=== PATIENT | female | born 1970 | race Caucasian/White ===

== ENCOUNTER 2018-03-31 11:52 | Emergency (ER) | payer BC, OTHER ==
[2018-03-31 12:47] LABS: ABS Basophils 0 10^3/ul (0-0.2); ABS Eosinophils 0 10^3/ul (0-0.6); ABS Lymphocytes 1.4 10^3/ul (1.0-4.8); ABS Monocytes 0.5 10^3/ul (0-0.8); ABS Neutrophils 4.3 10^3/ul (1.5-7.7); ABS Nucleated RBC 0 10^3/ul; Eosinophil % 0.1 % (0-6); Hematocrit 43 % (35-47); Hemoglobin 14.7 g/dl (12.0-16.0); Mean Corpuscular HGB Conc 34 g/dl (31-36); Mean Corpuscular Hemoglobin 31 pg (27-31); Mean Corpuscular Volume 90 fL (80-97); Mean Platelet Volume 7.9 um3 (7.4-10.4); Nucleated Red Blood Cells % 0.1; Platelet Count 226 10^3/ul (150-450); Red Blood Count 4.81 10^6/ul (4.00-5.40); Red Cell Distribution Width 13 % (10.5-15); White Blood Count 6.2 10^3/ul (3.5-10.8)
--- OUTSIDE RECORDS SUMMARY | 2018-03-31 13:17 | XMS REPORT ---
:1970 External Reference #:[id number] Author Organization [facility] Address [address] [place] [address] Phone [phone] Care Team Providers Name Role Phone Leti Chapman Care Team Information Field Sales Associate Unavailable Leti Chapman Primary Care Physician Unavailable Payers Type Date Identification Numbers Payment Provider Subscriber Commercial Effective: Policy Number: [employer] Joseph Calle 2017 [id number] PayID: [id number] [place] [address] [place] [address] Problems Date Description Provider Status Onset: 10/03/2011 Low blood pressure Sonja Edmondson M.D. Active Onset: 10/03/2011 Insomnia Sonja Edmondson M.D. Active Onset: 10/03/2011 Cyst of thyroid Sonja Edmondson M.D. Active Onset: 10/03/2011 Hypothyroidism Sonja Edmondson M.D. Active Family History Date Family Member(s) Problem(s) Comments Father Heart Disease Father 78 Father Atrial Fibrillation Father Hypertension Father Hypercholesterolemia Father Alzheimer's Disease Mother Autoimmune Dz chornic pain, depression Mother 73 Children None Siblings 2 biological brothers, 1 half bro, 1 half sis Paternal Grandfather due to COPD () Paternal Grandmother due to Aneurysm () Maternal Grandfather due to Heart Disease () - diabetes, Alzheimers. 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 Daily Caffeine Consumes on average 4 cups of coffee per day Exercise Type/Frequency Exercises sporadically Allergies, Adverse Reactions, Alerts Date Description Reaction Status Severity Comments 10/03/2011 Sulfa active 10/03/2011 Gluten anaphylaxis. active Medications Medication Date Status Form Strength Qnty SIG Indications Ordering Provider Diazepam 03/30/ Active Tablets 2mg 6tabs 1-2 by I71.9 Leti Canas 2017 mouth one Adela, hour prior M.D. to procedure Synthroid 07/12/ Active Tablets 50mcg 90tab take 1 Leti Canas 2015 s tablet by Adela, mouth M.D. daily Nystatin 10/03/ Hx Suspension [id number] 60ml 4-5gtts Cristhian FDg 2018 - /ML both ear Shallish, 03/29/ canals qid M.D. 2018 Ciprodex 08/24/ Hx Suspension 0.3-0.1% 7.500 4 drops H62.43 Leti Floresita 2016 - ml both ears Adela, 09/28/ twice M.D. 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 461.0 Tobramycin 01/31/2012 - Hx Solution 0.3% 1Bottle 1-2 gtts into 372.00 Jeanette Sulfate 06/26/2012 both eyes q 4 Anthony, hrs x 5 days Afnp-C Klonopin 10/03/2011 - Hx Tablets 1mg 1/4 po qhs Family 06/18/2013 [facility] Biaxin - Hx Tablets 500mg 20tabs take one Unknown 02/19/2014 tablet po bid x 10 days finish all medication Prednisone - Hx Tablets 20mg 3 tabs x 3 Unknown 02/19/2014 days, 2 tabs x 2 days, 1 tab x 2 days Proventil HFA - Hx Aerosol 108(90B 2 puffs q 4 Unknown 02/19/2014 ase) hrs prn mcg/Act Immunizations CPT Code Status Date Vaccine Lot # [id number] Given 12/25/2015 Tdap Tetanus, W Pertussis [id number] Vital Signs Date Vital Result Comment 03/30/2018 BP Systolic 112 mmHg BP Diastolic 58 mmHg Heart Rate 68 /min Body Temperature 97.9 F Height 68 inches 5'8" Weight 184.00 lb BMI (Body Mass Index) 28.0 kg/m2 10/03/2017 BP Systolic 118 mmHg BP Diastolic 68 mmHg Heart Rate 64 /min Body Temperature 97.9 F Respiratory Rate 16 /min Height 68 inches 5'8" Weight 190.12 lb BMI (Body Mass Index) 28.9 kg/m2 08/24/2017 BP Systolic 108 mmHg BP Diastolic 64 mmHg Heart Rate 64 /min Body Temperature 97.9 F Respiratory Rate 16 /min Height 68 inches 5'8" Weight 189.25 lb BMI (Body Mass Index) 28.8 kg/m2 01/02/2017 BP Systolic 110 mmHg BP Diastolic 72 mmHg Heart Rate 68 /min Body Temperature 98.4 F Respiratory Rate 16 /min Height 68 inches 5'8" Weight 183.00 lb BMI (Body Mass Index) 27.8 kg/m2 12/25/2015 BP Systolic 104 mmHg BP Diastolic 60 mmHg Heart Rate 72 /min Body Temperature 98.6 F Respiratory Rate 16 /min Height 68 inches 5'8" Weight 172.38 lb BMI (Body Mass Index) 26.2 kg/m2 12/24/2014 BP Systolic 110 mmHg BP Diastolic 70 mmHg Heart Rate 76 /min Body Temperature 99.1 F Respiratory Rate 16 /min Height 68 inches 5'8" measured Weight 167.00 lb BMI (Body Mass Index) 25.4 kg/m2 02/19/2014 BP Systolic 94 mmHg BP Diastolic 60 mmHg Heart Rate 66 /min Respiratory Rate 16 /min Height 68 inches 5'8" measured Weight 165.00 lb BMI (Body Mass Index) 25.1 kg/m2 10/30/2013 BP Systolic 120 mmHg BP Diastolic 70 mmHg Heart Rate 68 /min Body Temperature 98.6 F Respiratory Rate 16 /min Height 68 inches 5'8" measured Weight 165.00 lb BMI (Body Mass Index) 25.1 kg/m2 06/18/2013 BP Systolic 112 mmHg BP Diastolic 72 mmHg Heart Rate 60 /min Body Temperature 98.4 F Respiratory Rate 16 /min Height 68 inches 5'8" measured Weight 165.00 lb BMI (Body Mass Index) 25.1 kg/m2 06/26/2012 BP Systolic 90 mmHg BP Diastolic 50 mmHg Heart Rate 56 /min Body Temperature 98.7 F Respiratory Rate 18 /min Height 68 inches 5'8" measured Weight 164.00 lb BMI (Body Mass Index) 24.9 kg/m2 01/31/2012 BP Systolic 100 mmHg BP Diastolic 68 mmHg Heart Rate 80 /min Body Temperature 98.6 F Height 68 inches 5'8" measured Weight 160.00 lb BMI (Body Mass Index) 24.3 kg/m2 10/03/2011 BP Systolic 114 mmHg BP Diastolic 72 mmHg Heart Rate 72 /min Body Temperature 99.3 F Height 68 inches 5'8" measured Weight 154.00 lb BMI (Body Mass Index) 23.4 kg/m2 Right Visual Acuity Distance 20/20 corrected Left Visual Acuity Distance 20/20 corrected Results Test Date Test Result H/L Range Note Comprehensive Metabolic Prof 01/02/2017 Sodium 137 mEq/L 134-149 Potassium 4.3 mEq/L 3.6-5.5 Chloride 99 mEq/L 94-112 Carbon Dioxide 31 mEq/L 21-32 Glucose 85 mg/dL 70-105 BUN 12 mg/dL 6-26 Creatinine 0.7 mg/dL 0.6-1.4 BUN/Creat Ratio 17.1 CALC 8.0-36.0 Calcium 9.1 mg/dL 8.6-10.2 Total Protein 6.7 g/dL 6.4-8.3 Albumin 4.3 g/dL 3.8-5.5 Globulin 2.4 g/dL 2.0-4.8 A/G Ratio 1.8 CALC 0.6-2.3 Alk. Phosphatase 41 U/L 30-110 Alt (SGPT) 19 U/L 7-35 Ast (Sgot) 20 U/L 5-34 Total Bilirubin 0.3 mg/dL 0.2-1.3 GFR Non- >60 ml/min/1.73m^ >=60 GFR >60 ml/min/1.73m^ >=60 Complete Blood Count 01/02/2017 WBC 6.8 x10^3/UL 3.6-9.6 RBC 4.74 x10^6/UL 3.90-5.70 HGB 14.4 g/dL 12.1-17.2 HCT 43 % 36-50 MCV 91.0 fL 82.2-97.4 MCH 30.4 pg 27.6-33.3 MCHC 33.3 g/dL 33.0-35.5 RDW 13.8 % High 11.6-13.7 PLT 241 x10^3/UL 150-400 MPV 7.1 fL Low 5.5-11.0 Gran # 4.6 x10^3/UL 1.5-7.2 Lymph# 1.7 x10^3/UL 0.7-4.9 [place]ingo# 0.5 x10^3/UL 0.1-0.9 Gran % 66.5 % 42.2-75.2 Lymph % 25.7 % 20.5-51.1 [place]% 7.8 % 1.7-9.3 Laboratory test finding 01/02/2017 Free T4 1.14 ng/dL 0.75-1.54 TSH 1.28 mIU/L 0.50-6.00 Laboratory test finding 01/02/2016 Glucose, Serum 94 mg/dL 70-105 Lipid Profile 01/02/2016 Cholesterol 225 mg/dL High 120-200 Triglycerides 31 mg/dL 30-200 HDL Cholesterol 81 mg/dL 30-85 LDL (Calculated) 138 CALC High 0-129 VLDL Cholesterol 6 mg/dL 0-50 HDL Risk Factor 2.8 CALC 0.0-4.4 Laboratory test finding 01/02/2016 TSH 1.11 mIU/L 0.50-6.00 1 Free T4 1.15 ng/dL 0.75-1.54 Laboratory test finding 12/24/2014 TSH 1.04 mIU/L 0.50-6.00 Free T4 1.20 ng/dL 0.75-1.54 Glucose, Serum 93 mg/dL 70-105 Vitamin B-12 261 pg/mL 230-1050 Vitamin D25 13 Low 30-100 CBC Electronic (Fma) 12/24/2014 WBC 6.9 3.6-9.6 RBC 4.65 3.90-5.70 Hemoglobin (Fma/CMC/CTX) 14.5 g/dL 12.1 - 17.2 Hematocrit (Fma/CMC/CTX) 42.8 % 36.1 - 50.3 Platelets 253 10^3/ul 150-400 Lymph% 31.8 % 17.0-48.0 Mixed% 6.1 Neutrophils % 62.1 Mean Corpuscular Vol 92 82.2-97.4 Mean Corpuscular Hemoglobin 31.1 27.6-33.3 Mean Corpuscular Hemo Concen 33.8 32.0-36.0 RDW 13.5 11.6-13.7 Mean Platelet Volume 7.2 5.5-11.0 Laboratory test finding 02/19/2014 Free T4 1.11 ng/dL 0.75-1.54 TSH 0.99 mIU/L 0.50-6.00 CBC Electronic ([facility]) 06/18/2013 WBC 6.3 3.6-9.6 RBC 4.69 3.90-5.70 Hemoglobin (Fma/CMC/CTX) 14.4 g/dL 12.1 - 17.2 Hematocrit (Fma/CMC/CTX) 43.7 % 36.1 - 50.3 Platelets 285 10^3/ul 150-400 Lymph% 28.8 20.5-51.1 Mixed% 6.1 Neutrophils % 65.1 Mean Corpuscular Vol 93 82.2-97.4 Mean Corpuscular Hemoglobin 30.8 27.6-33.3 Mean Corpuscular Hemo Concen 33.0 32.0-36.0 RDW 12.4 11.6-13.7 Mean Platelet Volume 6.7 6.5-11.0 Laboratory test finding 06/18/2013 Sed Rate (Fma/CMC/Centrex) 4mm Ua - Micro (a) 06/18/2013 Appearance clear Color yellow Glucose, Urine (Fma/CMC/CTX) - Bilirubin - Ketones - SP Grav 1.020 Blood - PH 7.5 Protein - Urobil 1.0 Nitrite - Leukocytes (Fma/CMC/Centrex) small Hyaline - /Lpf Granular - /Lpf WBC (Fma,Centrex) 15-20 RBC 1-2 Mucus (Fma/CBC/Centrex) - /Lpf Epith occ /Lpf Bacteria +1 /Hpf Amorphous (Fma/CMC/Centrex) - /Lpf Crystals, Fluid (Fma/CMC/CTX) - Z#Comments - Laboratory test finding 06/18/2013 Urine Culture No significant g <SEE 2 NOTE> Comprehensive Metabolic 06/18/2013 Albumin 4.6 g/dL 3.8-5.5 Prof Alk. Phos. 58 U/L 30-110 Alt (SGPT) 17 U/L 7-35 Ast (Sgot) 25 U/L 5-34 BUN 15 mg/dL 6-26 Calcium 8.8 mg/dL 8.6-10.2 Chloride 102 mEq/L 94-112 Creatinine 1.0 mg/dL 0.6-1.4 Carbon Dioxide 22 mEq/L 21-32 Glucose 91 mg/dL 70-105 Sodium 137 mEq/L 134-149 Total Bilirubin 0.4 mg/dL 0.2-1.3 Total Protein 6.6 g/dL 6.3-8.1 Potassium 4.8 mEq/L 3.6-5.5 Globulin 2.0 g/dL 2.0-4.8 A/G Ratio 2.3 Calc 0.6-2.3 BUN/Creat Ratio 15.0 Calc 8.0-36.0 Basic Metabolic Panel 10/04/2012 Sodium 139 mmol/L 133-145 Potassium 4.4 mmol/L 3.5-5.0 Chloride 107 mmol/L 101-111 Co2 Carbon Dioxide 28.0 mmol/L 22-32 Anion Gap 4.0 mmol/L 2-11 Glucose 85 mg/dL 70-100 Blood Urea Nitrogen 13 mg/dL 6-24 Creatinine 0.70 mg/dL 0.50-1.40 BUN/Creatinine Ratio 18.6 8-20 Calcium 9.0 mg/dL 8.1-9.9 Egfr Non- 90.9 >60 Egfr 116.9 >60 3 Laboratory test finding 10/04/2012 TSH (Thyroid Stimulating 0.59 miu/mL 0.34-5.60 Horm) Cortisol 9.5 g/dL 4 Laboratory test finding 10/04/2012 Acth 14 pg/mL 5 Aldosterone 5.8 ng/dL <=21 6 Renin 1.1 ng/mL/h 7 Laboratory test finding 10/03/2011 TSH 1.61 mIU/L 0.50-6.00 Ua - Non Micro (Fma) 10/03/2011 Appearance clear Color yellow' Glucose - Bilirubin - Ketones trace SP Grav 1.020 Blood - PH 5.5 Protein - Urobil 0.2 Nitrite - Leukocytes (Fma/CMC/Centrex) - 1 FASTING 2 No significant growth. 3 Because ethnic data is not always readily available, this report includes an eGFR for both -Americans and non- Americans. The National Kidney Disease Education Program (NKDEP) does not endorse the use of the MDRD equation for patients that are not between the ages of 18 and 70, are , have extremes of body size, muscle mass, or nutritional status, or are non- or non-. According to the National Kidney Foundation, irrespective of diagnosis, the stage of the disease is based on the level of kidney function: Stage Description GFR(mL/min/1.73 m(2)) 1 Kidney damage with normal or decreased GFR 90 2 Kidney damage with mild decrease in GFR 60-89 3 Moderate decrease in GFR 30-59 4 Severe decrease in GFR 15-29 5 Kidney failure <15 (or dialysis) 4 AM Cortisol 8.7-22.4 PM Cortisol Less than 10 5 -- REFERENCE VALUE -- 10-60 (a.m. collection) Test Performed by: [place] [address] Farm Advisor: Sedrick Lee III, M.D. 6 Reference range based on upright A.M. collection from subjects on ad heather sodium uptake. Test Performed by: [place] [address] Farm Advisor: Sedrick Lee III, M.D. 7 -- REFERENCE VALUE -- (Peripheral vein specimen) Na-deplete, upright: Mean: 5.9 Range: 2.9-10.8 Na-replete, upright: Mean: 1.0 Range: <=0.6-3.0 Test Performed by: [place] [address] Farm Advisor: Sedrick Lee III, M.D. Procedures Date CPT Code Description Status Comment 12/26/2016 Mammogram Completed pt states utd pp 06/29/2012 31367 Holter Monitor Completed 06/26/2012 39757 Electrocardiogram Complete Completed 10/03/2011 39787 Vision Test- screening test of visual Completed acuity, quantitative, bila Encounters Type Date Location Provider CPT E/M Dx Office Visit 10/03/2017 3:20p Main Office Cristhian Baez M.D. 44465 H62.43 Office Visit 08/24/2017 10:30a [facility] Leti Chapman, 50970 H62.43 Wilfredo H61.21 Office Visit 01/02/2017 3:30p [facility] Marissa Montez-C 48557 Z83.3 E03.9 R06.83 R21 Office Visit 12/25/2015 1:00p [place] [address] E03.9 M25.512 Z23 Office Visit 12/24/2014 4:00p [place] [address] 780.79 244.9 380.4 268.9 Office Visit 02/19/2014 3:30p [place] [address] 244.9 Office Visit 10/30/2013 9:15a Main Office BelkysROVERTO Amin 10397 466.0 461.0 Office Visit 06/18/2013 3:30p [facility] Marissa Montez-C 76384 789.02 788.41 Office Visit 06/29/2012 10:00a [facility] Leti Chapman M.D. 27798 458.1 Office Visit 06/26/2012 3:30p Main Office Leti Chapman M.D. 25991 458.1 Office Visit 01/31/2012 4:00p Main Office Marissa Rojo-C 77734 372.00 Office Visit 10/03/2011 6:00p Main Office Sonja Edmondson, 75577 244.9 MDgDDg 246.2 780.52 458.9 V72.0 Plan of Care 03/30/2018 - Leti Chapman M.D.Z00.01 Encounter for general adult medical exam w abnormal findingsNew Labs:CBC Electronic (Fma)CCC-Comp+Lipid (Fma)T4, TSH & [place]1Qxjimxqq:You are in excellent general health. I recommend regular physical exams with attention to good nutrition and exercise, eye exams every other year, and dental exams twice yearly. ~B_~U_Goals:~u_~b_2 fresh fruits daily3 helpings of fresh green and multicolored vegetablesEat from the whole color spectrum. 40-60 Oz water daily~B_~U_MOVE YOUR BODY.~u_~b_ Bodies were made to be moved. exercise 30 minutes at least 4-5 times tqxdweX45.31 Encntr screen mammogram for malignant neoplasm of breastNew Xrays:Mammography Screening, Bilateral; 2-View Each JlfxekJ50.9 Hypothyroidism, unspecifiedComments:Stable. Continue present meds.I71.9 Aortic aneurysm of unspecified site, without ruptureNew Medication:Diazepam 2 mgNew Xrays:CT Abdomen & Pelvis W/ContrastComments:needs valium for claustrophobia.E55.9 Vitamin D deficiency, unspecifiedNew Labs:Vitamin D, 25Hydroxy(Fma/LCR53.83 Other fatigueNew Labs:Vitamin B12 And Folate SerumFollow up:4 weeksAllComments:~ B_~U_Medication Management~b_~u_ Patient Understands medications she's taking? Yes No Are there Barriers to Adherence? Yes No Has the patient been asked about herbal supplements and therapies, and OTC meds? Yes No
[2018-03-31] MEDS ORDERED: Iohexol 300* (CONTRAST) 10 ML SDV IV ONE (13:18)
--- NOTE | 2018-03-31 13:23 | RAD ---
Indication: Chest discomfort. 2 views of the chest including dual energy PA views demonstrate no mediastinal shift. Heart is of normal size and configuration. Lung early are clear. IMPRESSION: No active cardiopulmonary disease is noted.
--- NOTE | 2018-03-31 14:00 | RAD ---
Indication: Abdominal cramping evaluate for abdominal aortic aneurysm. Contrast: Administered 100.1 ml of OMNIPAQUE 300 mg/ml CT of the abdomen and pelvis was performed without oral or IV contrast administration. Heart is of normal size without evidence of pericardial effusion. The liver is normal in size. No focal lesions or intrahepatic ductal dilatation is noted. The gallbladder demonstrates no calcified gallstones, pericholecystic fluid or wall thickening. The common duct is not dilated. Pancreas demonstrates no mass or pancreatic duct dilatation. The spleen is normal in size. No adrenal lesions are noted. The kidneys demonstrate symmetric nephrograms without evidence of hydronephrosis or focal masses. There is a nonobstructing calculi in the left kidney measuring up to 5 mm. Aorta and inferior vena cava are unremarkable. There is no evidence of abdominal aortic aneurysm. No retroperitoneal lymphadenopathy is noted. No dilated loops of bowel are noted. CT of the pelvis demonstrates no retroperitoneal or pelvic lymphadenopathy. The IUD is in place. The uterus and ovaries are unremarkable. The urinary bladder is otherwise distended but otherwise unremarkable. The visualized bony structures are unremarkable. IMPRESSION: No evidence of abdominal aortic aneurysm. Nonobstructing left renal calculus. No other masses or fluid collections are identified.
[2018-03-31 14:31] VITALS: BP 102/86
--- NOTE | 2018-03-31 16:22 | ED ---
Abdominal Pain/Female - HPI Summary HPI Summary: Patient is a 47-year-old female presenting to the ED with 1 month history of bilateral cramping to the lower quadrants which radiates to the bilateral lower back. She describes them as "period cramps," but has not had her period in several years due to perimenopausal. She recently had her follow-up with her PCP who found a "possible aortic aneurysm." She is tearful on arrival and states she is unable to wait the [address] scan and is concerned over her worsening symptoms. Denies any fevers, sweats, chills. Denies any nausea, vomiting, diarrhea, constipation. Last BM this morning. Last menstrual cycle several months to year ago. Denies any vaginal bleeding. Endorses a feeling of "fullness" in the abdomen but denies gaining any weight. Denies any known cardiac history, however father from [facility]. Concerned over aortic aneurysm as grandmother of an early age due to this. - History of Current Complaint Chief Complaint: EDZuleika Stated Complaint: CRAMPS ABD AND BACK Time Seen by Provider: 03/31/18 12:09 Hx Obtained From: Patient ?: No Onset/Duration: Gradual Onset Timing: Constant Severity Initially: Moderate Severity Currently: Moderate Pain Intensity: 0 Pain Scale Used: 0-10 Numeric Location: Discrete At: LUQ, Discrete At: LLQ Radiates: No Character: Cramping Aggravating Factor(s): Nothing Alleviating Factor(s): Nothing Associated Signs and Symptoms: Positive: Negative - Risk Factors Ectopic Risk Factor: Negative Ovarian Torsion Risk Factor: Negative Allergies/Adverse Reactions: Allergies Allergy/AdvReac Type Severity Reaction Status Date / Time Sulfa (Sulfonamide Allergy Hives Verified 03/31/18 12:04 Antibiotics) PMH/Surg Hx/FS Hx/Imm Hx Previously Healthy: Yes Endocrine/Hematology History: Reports: Hx Thyroid Disease Denies: Hx Diabetes Cardiovascular History: Denies: Hx Hypertension History: Denies: Hx Renal Disease Psychiatric History: Reports: Hx Schizophrenia, Hx Bipolar Disorder - Cancer History Hx Chemotherapy: No Hx Radiation Therapy: No - Surgical History Surgery Procedure, Year, and Place: WISDOM TEETH; NON-MALIGNANT NEVI REMOVED FROM LEG - Immunization History Hx Pertussis Vaccination: No Immunizations Up to Date: Yes Infectious Disease History: No Infectious Disease History: Denies: Hx Clostridium Difficile, Hx Hepatitis, Hx Human Immunodeficiency Virus (HIV), Hx of Known/Suspected MRSA, Hx Shingles, Hx Tuberculosis, Hx Known/ Suspected VRE, Hx Known/Suspected VRSA, History Other Infectious Disease, Traveled Outside the [place] in Last 30 Days - Family History Known Family History: Positive: None - Social History Occupation: Employed Full-time Lives: With Family Alcohol Use: Weekly Hx Substance Use: No Substance Use Type: Reports: None Hx Tobacco Use: No Smoking Status (MU): Never Smoked Tobacco Review of Systems Constitutional: Negative Negative: Fever, Chills, Fatigue Negative: Palpitations, Chest Pain Negative: Shortness Of Breath, Cough Positive: Abdominal Pain Genitourinary: Negative Positive: no symptoms reported, see HPI Negative: Arthralgia, Myalgia Negative: Rash, Bruising Neurological: Negative All Other Systems Reviewed And Are Negative: Yes Physical Exam Triage Information Reviewed: Yes Vital Signs On Initial Exam: Initial Vitals Temp Pulse Resp BP Pulse Ox 97.8 F 76 16 140/90 97 03/31/18 12:00 03/31/18 12:00 03/31/18 12:00 03/31/18 12:00 03/31/18 12:00 Vital Signs Reviewed: Yes Appearance: Positive: Well-Appearing, Well-Nourished Skin: Positive: Warm, Skin Color Reflects Adequate Perfusion Head/Face: Positive: Normal Head/Face Inspection Eyes: Positive: EOMI, VALENTINO, Conjunctiva Clear Neck: Positive: Supple, No Lymphadenopathy Respiratory/Lung Sounds: Positive: Clear to Auscultation, Breath Sounds Present Cardiovascular: Positive: RRR, Pulses are Symmetrical in both Upper and Lower Extremities Musculoskeletal: Positive: Normal, Strength/ROM Intact Neurological: Positive: Speech Normal Psychiatric: Positive: Normal, Affect/Mood Appropriate AVPU Assessment: Alert Diagnostics - Vital Signs Vital Signs Temp Pulse Resp BP Pulse Ox 03/31/18 14:36 97.3 F 64 19 102/86 100 03/31/18 14:13 64 19 102/86 100 03/31/18 14:00 63 17 99 03/31/18 13:12 63 16 124/71 99 03/31/18 13:01 65 16 99 03/31/18 12:42 67 19 131/59 99 03/31/18 12:13 80 16 100 03/31/18 12:12 75 20 148/87 100 03/31/18 12:00 97.8 F 76 16 140/90 97 - Laboratory Lab Results: Lab Results 03/31/18 03/31/18 03/31/18 Range/Units 12:40 12:40 12:40 WBC 6.2 (3.5-10.8) 10^3/ul RBC 4.81 (4.00-5.40) 10^6/ul Hgb 14.7 (12.0-16.0) g/dl Hct 43 (35-47) % MCV 90 (80-97) fL MCH 31 (27-31) pg MCHC 34 (31-36) g/dl RDW 13 (10.5-15) % Plt Count 226 (150-450) 10^3/ul MPV 7.9 (7.4-10.4) um3 Neut % (Auto) 68.6 (38-83) % Lymph % (Auto) 23.0 L (25-47) % [place] % (Auto) 7.7 H (0-7) % Eos % (Auto) 0.1 (0-6) % Baso % (Auto) 0.6 (0-2) % Absolute Neuts (auto) 4.3 (1.5-7.7) 10^3/ul Absolute Lymphs (auto) 1.4 (1.0-4.8) 10^3/ul Absolute Monos (auto) 0.5 (0-0.8) 10^3/ul Absolute Eos (auto) 0 (0-0.6) 10^3/ul Absolute Basos (auto) 0 (0-0.2) 10^3/ul Absolute Nucleated RBC 0 10^3/ul Nucleated RBC % 0.1 Sodium 139 (135-145) mmol/L Potassium 4.5 (3.5-5.0) mmol/L Chloride 106 (101-111) mmol/L Carbon Dioxide 27 (22-32) mmol/L Anion Gap 6 (2-11) mmol/L BUN 11 (6-24) mg/dL Creatinine 0.97 H (0.51-0.95) mg/dL Est GFR ( Amer) 73.9 (>60) Est GFR (Non-Af Amer) 61.0 (>60) BUN/Creatinine Ratio 11.3 (8-20) Glucose 104 H (70-100) mg/dL Lactic Acid 0.7 (0.5-2.0) mmol/L Calcium 9.3 (8.6-10.3) mg/dL Total Bilirubin 0.60 (0.2-1.0) mg/dL AST 17 (13-39) U/L ALT 13 (7-52) U/L Alkaline Phosphatase 53 (34-104) U/L Troponin I 0.00 (<0.04) ng/mL C-Reactive Protein 1.37 (<8.01) mg/L Total Protein 7.0 (6.4-8.9) g/dL Albumin 4.3 (3.2-5.2) g/dL Globulin 2.7 (2-4) g/dL Albumin/Globulin Ratio 1.6 (1-3) Result Diagrams: 03/31/18 12:40 03/31/18 12:40 Lab Statement: Any lab studies that have been ordered have been reviewed, and results considered in the medical decision making process. Abdominal Pain Fem Course/Dx - Course Course Of Treatment: On physical examination, there is a palpable and bounding pulse to the abdominal aorta. No other acute findings on physical exam. CTA obtained which shows no evidence of an aortic aneurysm or any other acute pathologies, however 0.5 cm kidney stone identified which is nonobstructing. Patient continues to deny any urinary symptoms. Labs obtained and are WNL. Will refer back to PCP at this time. No bruits heard bilaterally in the carotids. - Diagnoses Differential Diagnosis: Positive: Abdominal Aortic Aneurysm Provider Diagnoses: Bilateral lower abdominal cramping Discharge - Sign-Out/Discharge Documenting (check all that apply): Patient Departure - Discharge Plan Condition: Stable Disposition: HOME Referrals: Leti Chapman MD [Primary Care Provider] - Additional Instructions: Please follow-up with your PCP as scheduled - Billing Disposition and Condition Condition: STABLE Disposition: Home
== END 2018-03-31 14:36 | disposition home or self-care (01) ==
LOC: ED 11:52
DX: R10.84 Generalized abdominal pain (principal)
CPT/HCPCS: 36415; 71046; 74177; 80053; 83605; 84484; 85025; 86140; 99283; Q9967

== ENCOUNTER 2019-09-20 12:01 | Observation (INO) | payer OTHER ==
--- OUTSIDE RECORDS SUMMARY | 2019-09-20 12:15 | XMS REPORT | Continuity of Care Document ---
:1970 External Reference #:[id number] Author Name ROVERTO Ortega-Cde (transmitted by agent of provider Karrie Thomas) Address [address], [place] [address] Care Team Providers Name Role Phone Leti Chapman MD - Internal Care Team Information [place] Worker [phone] Medicine Problems Description No Information Available Social History Type Date Description Comments Sex Unknown Tobacco Use Start: Unknown Never Smoked Cigarettes Smoking Status Reviewed: 09/06/19 Never Smoked Cigarettes ETOH Use Drinks 4 Alcoholic Beverages Per Week Tobacco Use Start: Unknown Patient has never smoked Recreational Drug Use Never Used Drugs Exercise Type/Frequency Exercises regularly Allergies, Adverse Reactions, Alerts Active Allergies Reaction Severity Comments Date Sulfazine 01/19/2017 Gluten 07/10/2019 Medications Active Medications SIG Qnty Indications Ordering Provider Date Synthroid take one tablet by Unknown 50mg Tablets mouth once daily as directed CBD Oil cbd oil 1 or 2 Unknown drops topically daily for joint pain Immunizations Description No Information Available Vital Signs Date Vital Result Comment 09/06/2019 3:14pm Height 69 inches 5'9" Weight 193.00 lb Heart Rate 64 /min BP Systolic 122 mmHg BP Diastolic 70 mmHg O2 % BldC Oximetry 99 % BMI (Body Mass Index) 28.5 kg/m2 08/20/2019 10:03am Height 69 inches 5'9" Weight 188.00 lb Heart Rate 67 /min BP Systolic 116 mmHg BP Diastolic 68 mmHg Body Temperature 97.0 F O2 % BldC Oximetry 99 % BMI (Body Mass Index) 27.8 kg/m2 Results Test Acquired Date Facility Test Result H/L Range Note Laboratory test 07/30/2019 [facility] Progesterone 0.1 ng/mL [address] [place] [address] [phone] Estradiol <40 pg/mL 2 FSH (Follicle Stim Hormone) 67.1 mIU/mL 3 LH (Lutenizing Hormone) 29.6 mIU/mL 4 Sex Hormone Binding Globulin 90 nmol/L 5 Estradiol, Confirmatory, S <10 pg/mL 6 Testosterone Free 07/30/2019 [facility] Free 0.13 0.06-0.92 7 & Total [address] Testosterone ng/[place] [address] ng/dl [phone] Testosterone 16 ng/dL 8-60 8 Laboratory test 07/30/2019 [facility] Dhea 2.1 ng/mL <6.0 [address] [place] [address] [phone] Gliadin (Deamidated) 07/12/2019 [facility] Gliadin IgG <10.0 U 10 Igg/Iga AB [address] [place] [address] [phone] Gliadin IgA <10.0 U 11 Celiac Hla 07/12/2019 [facility] [id number] SEE BELOW [address] [place] [address] [phone] [id number] SEE BELOW 13 Celiac Gene Pairs Present? Yes Celiac Gene Interpretation See Comment 14 Laboratory test 07/12/2019 [facility] T3 Reverse 18 ng/dL 10- 24 [address] [place] [address] [phone] Transglutaminase 07/12/2019 [facility] Tissue <1.2 16 Igg & Iga [address] Transglutaminase U/[place] [address] IgA Ab [phone] Tissue Transglutaminase IgG Ab <1.2 U/mL 17 Laboratory test 07/12/2019 [facility] CRP High 1.34 mg/L < 2.[address] [place] [address] [phone] TSH (Thyroid Stim Horm) 0.74 mcIU/mL Normal 0.34-5.60 Free T4 (Free Thyroxine) 1.02 ng/dL Normal 0.61-1.12 T3 Free 3.20 pg/mL Normal 2.5-3.9 Thyroxine 7.16 g/dL Normal 6.09-12.23 T3 Total 91 ng/dL Normal 87-178 Thyroperoxidase AB 0.25 IU/mL Normal <9 Vitamin D Total 25(Oh) 25.5 ng/mL Normal 20-50 18 Folic Acid (Folate) 5.21 ng/mL >3.99 Insulin Level 2.9 mcIU/mL Normal 2.0-16.0 Vitamin B12 364 pg/mL Normal 180-914 19 Thyroglobulin AB 2.6 IU/mL <4.0 Hemoglobin A1c (Glyco HGB) 5.2 % Normal 4.0-5.6 20 Copper, Serum 1.26 g/mL 0.75-1.45 21 Zinc Serum 0.78 g/mL 0.66-1.10 22 Lipid Profile 07/12/2019 [facility] Triglycerides 42 mg/dL 23 (Trig/Chol/HDL) [address] [place] [address] [phone] Cholesterol 198 mg/dL 24 HDL Cholesterol 86.4 mg/dL 25 LDL Cholesterol 103 mg/dL 26 Comp Metabolic 07/12/2019 [facility] Sodium 139 mmol/L Normal 135-[address] [place] [address] [phone] Potassium 4.5 mmol/L Normal 3.5-5.0 Chloride 104 mmol/L Normal 101-111 Co2 Carbon Dioxide 29 mmol/L Normal 22-32 Anion Gap 6 mmol/L Normal 2-11 Glucose 81 mg/dL Normal 70-100 Blood Urea Nitrogen 12 mg/dL Normal 6-24 Creatinine 0.76 mg/dL Normal 0.51-0.95 BUN/Creatinine Ratio 15.8 Normal 8-20 Calcium 9.7 mg/dL Normal 8.6-10.3 Total Protein 6.8 g/dL Normal 6.4-8.9 Albumin 4.5 g/dL Normal 3.2-5.2 Globulin 2.3 g/dL Normal 2-4 Albumin/Globulin Ratio 2.0 Normal 1-3 Total Bilirubin 0.70 mg/dL Normal 0.2-1.0 Alkaline Phosphatase 68 U/L Normal 34-104 Alt 18 U/L Normal 7-52 Ast 20 U/L Normal 13-39 Egfr Non- 80.2 >60 Egfr 97.1 >60 27 CBC Auto 07/12/2019 [facility] White Blood 4.6 10^3/uL Normal 3.5-10.[address] [place] [address] [phone] Red Blood Count 4.72 10^6/uL Normal 3.70-4.87 Hemoglobin 14.4 g/dL Normal 12.0-16.0 Hematocrit 42 % Normal 35-47 Mean Corpuscular Volume 90 fL Normal 80-97 Mean Corpuscular Hemoglobin 31 pg Normal 27-31 Mean Corpuscular HGB Conc 34 g/dL Normal 31-36 Red Cell Distribution Width 14 % Normal 10-15 Platelet Count 240 10^3/uL Normal 150-450 Mean Platelet Volume 7.9 fL Normal 7.4-10.4 Abs Neutrophils 2.8 10^3/uL Normal 1.5-7.7 Abs Lymphocytes 1.4 10^3/uL Normal 1.0-4.8 Abs Monocytes 0.4 10^3/uL Normal 0-0.8 Abs Eosinophils 0.0 10^3/uL Normal 0-0.6 Abs Basophils 0.1 10^3/uL Normal 0-0.2 Abs Nucleated RBC 0.0 10^3/uL Granulocyte % 61.0 % Lymphocyte % 29.8 % Monocyte % 7.7 % Eosinophil % 0.4 % Basophil % 1.1 % Nucleated Red Blood Cells % 0.0 Thyroid Panel 07/11/2019 [facility] Free T4 (Free <pending> DRIVE Thyroxine) [place] [address] [phone] Thyroxine <pending> TSH (Thyroid Stim Horm) <pending> Vitamin B12 And Folate 07/11/2019 [facility] Vitamin B12 < pending> [place] [address] [phone] Folic Acid (Folate) <pending> Laboratory test finding 07/11/2019 [facility] T3 Free <pending> [place] [address] [phone] T3 Reverse <pending> T3 Total <pending> Zinc Serum <pending> Vitamin D Total 25(Oh) <pending> Laboratory test 07/11/2019 [facility] Hemoglobin A1c <pending> finding DRIVE (Glyco HGB) [place] [address] [phone] Insulin Level <pending> Laboratory test 07/11/2019 [facility] Copper, Serum <pending> [place] [address] [phone] Laboratory test 07/11/2019 [facility] CRP High Sensitivity < pending> [place] [address] [phone] Anti-Thyroid 07/11/2019 [facility] Thyroperoxidase AB <pending> [place] [address] [phone] Thyroglobulin AB <pending> Laboratory test 07/11/2019 [facility] Sex Hormone Binding < pending> finding [facility] [place] [address] [phone] Laboratory test 07/11/2019 [facility] Progesterone <pending> [place] [address] [phone] FSH And LH 07/11/2019 [facility] FSH (Follicle Stim <pending> DRIVE Hormone) [place] [address] [phone] LH (Lutenizing Hormone) <pending> Laboratory test finding 07/11/2019 [facility] Dhea <pending> [place] [address] [phone] Estradiol <pending> 1 Female reference ranges for Progesterone: Follicular phase.......0.3 - 1.5 ng/ml Mid-luteal phase.......5.2 - 18.5 ng/ml Postmenopausal.........< 0.8 ng/ml 1st trimester.........4.7 - 50.0 ng/ml 2nd trimester.........19.4 - 45.3 ng/ml 2 Estradiols <40 pg/mL are sent to a reference lab for low range testing. Postmenopausal Females < 20 Ovulating females: by day in cycle relative to LH Peak Follicular phase - 12 10-50 - 4 60-200 Mid-cycle - 1 120-375 Luteal phase + 2 50-155 + 6 60-260 + 12 15-115 3 Normally menstruating females - Follicular phase 3 - 9 - Mid-cycle peak 4 - 23 - Luteal phase 1 - 6 Postmenopausal females 16 - 114 4 Normally menstruating females - Follicular Phase 1 - 18 - Mid-Cycle Peak 24 - 105 - Luteal Phase 0.6 - 20 Postmenopausal females 15 - 62 5 REFERENCE VALUE 18-144 (non-) Test Performed by: [facility] [place] [address] Powdered Sugar Supervisor: Lisandro Steward M.D. Ph.D.; CLIA# [id number] 6 REFERENCE VALUE Premenopausal: 15-350 (E2 levels vary widely through the menstrual cycle.) Postmenopausal: <10 ADDITIONAL INFORMATION This test was developed and its performance characteristics determined by [facility] in a manner consistent with CLIA requirements. This test has not been cleared or approved by the U.S. Food and Drug Administration. Test Performed by: [facility] [place] [address] Powdered Sugar Supervisor: Lisandro Steward M.D. Ph.D.; CLIA# [id number] 7 ADDITIONAL INFORMATION Testing performed by [facility]. This test was developed and its performance characteristics determined by [facility] in a manner consistent with CLIA requirements. This test has not been cleared or approved by the U.S. Food and Drug Administration. 8 ADDITIONAL INFORMATION Testing performed by Liquid Chromatography-Tandem Mass Spectrometry (LC-MS/MS). This test was developed and its performance characteristics determined by [facility] in a manner consistent with CLIA requirements. This test has not been cleared or approved by the U.S. Food and Drug Administration. Test Performed by: [facility] [place] [address] Powdered Sugar Supervisor: Lisandro Steward M.D. Ph.D.; CLIA# [id number] 9 ADDITIONAL INFORMATION This test was developed and its performance characteristics determined by [facility] in a manner consistent with CLIA requirements. This test has not been cleared or approved by the U.S. Food and Drug Administration. Test Performed by: [facility] [place] [address] Powdered Sugar Supervisor: Lisandro Steward M.D. Ph.D.; CLIA# [id number] 10 REFERENCE VALUE <20.0 (Negative) Test Performed by: [facility] [place] [address] Powdered Sugar Supervisor: Lisandro Steward M.D. Ph.D.; CLIA# [id number] 11 REFERENCE VALUE <20.0 (Negative) 12 RESULT: 01:03,03 REFERENCE VALUE Not Applicable 13 RESULT: 03:02,06:03 DQ Serologic Equivalent: 8,6 REFERENCE VALUE Not Applicable 14 These genes are permissive for celiac disease. The absence of HLA celiac permissive genes would make the presence of celiac disease unlikely. However, these genes can also be present in the normal population. ADDITIONAL INFORMATION Method: Molecular typing of HLA antigens performed using reverse SSOP and/or SSP methods, reported as serological equivalents and low to medium resolution molecular values. Test Performed by: [facility] [place] [id number] Powdered Sugar Supervisor: Lisandro Steward M.D. Ph.D.; CLIA# [id number] 15 ADDITIONAL INFORMATION This test was developed and its performance characteristics determined by [facility] in a manner consistent with CLIA requirements. This test has not been cleared or approved by the U.S. Food and Drug Administration. Test Performed by: [facility] [place] [address] Powdered Sugar Supervisor: Lisandro Steward M.D. Ph.D.; CLIA# [id number] 16 REFERENCE VALUE <4.0 (Negative) 17 REFERENCE VALUE <6.0 (Negative) Test Performed by: [facility] [place] [address] Powdered Sugar Supervisor: Lisandro Steward M.D. Ph.D.; CLIA# [id number] 18 Total 25-Hydroxyvitamin D2 and D3 (25-OH-VitD) <10 ng/mL (severe deficiency) 10-19 ng/mL (mild to moderate deficiency) 20-50 ng/mL (optimum levels) 51-80 ng/mL (increased risk of hypercalciuria) >80 ng/mL (toxicity possible) 19 Normal Range 180 to 914 Indeterminate Range 145 to 180 Deficient Range <145 20 Therapeutic target for the treatment of diabetes mellitus patients is <7% HBA1C, and in selective patients <6.0%. Please refer to [place] [employer] diabetic care guidelines for further information. 21 ADDITIONAL INFORMATION This test was developed and its performance characteristics determined by [facility] in a manner consistent with CLIA requirements. This test has not been cleared or approved by the U.S. Food and Drug Administration. Test Performed by: [facility] [place] [address] Powdered Sugar Supervisor: Lisandro Steward M.D. Ph.D.; CLIA# [id number] 22 ADDITIONAL INFORMATION This test was developed and its performance characteristics determined by [facility] in a manner consistent with CLIA requirements. This test has not been cleared or approved by the U.S. Food and Drug Administration. Test Performed by: [facility] [place] [address] Powdered Sugar Supervisor: Lisandro Steward M.D. Ph.D.; CLIA# [id number] 23 Desirable: <150 Borderline High: 150-199 High: 200-499 Very High: >500 24 Desirable: <200 Borderline High: 200-239 High: >239 25 Low: <40 Desirable: 40-60 High: >60 26 Desirable: <100 Near Optimal: 100-129 Borderline High: 130-159 High: 160-189 Very High: >189 27 Because ethnic data is not always readily [...] 15-29 5 Kidney failure <15 (or dialysis) Procedures Date Code Description Status 07/05/2019 72702 Polysomnography Sleep Staging 4+ Parameters Completed 04/16/2019 75544 Sleep Study Unattended,HRT Rate,Oxygen Sat,Resp Completed Effort/Airflow Medical Devices Description No Information Available Encounters Type Date Location Provider Dx Diagnosis Office Visit 07/30/2019 [facility] Chloé Abdalla, CHRIS R53.83 Other fatigue 3:30p [facility] N95.1 Menopausal and female climacteric states Office Visit 07/12/2019 [facility] G47.33 Obstructive sleep 9:30a [facility], RN, apnea (adult) [facility] (pediatric) G47.00 Insomnia, unspecified Office Visit 07/11/2019 1:00p [facility] Chloé Abdalla, R53.83 Other fatigue [facility] [employer] N95.1 Menopausal and female climacteric states G47.00 Insomnia, unspecified Office Visit 03/28/2019 7:30a [facility] Angela Gonzalez, R06.83 [facility] R53.83 Other fatigue Assessments Date Code Description Provider 09/06/2019 Z30.432 Encounter for removal of Kathrine Ram, [employer]-Cde intrauterine contraceptive device 08/20/2019 R53.83 Other fatigue Chloé Abdalla NP 08/20/2019 N95.1 Menopausal and female climacteric Chloé Abdalla [employer] states 08/20/2019 K59.00 Constipation, unspecified Chloé Abdalla, CHRIS 07/30/2019 R53.83 Other fatigue Chloé Abdalla NP 07/30/2019 N95.1 Menopausal and female climacteric Chloé Abdalla NP states 07/12/2019 G47.33 Obstructive sleep apnea (adult) Matilde [facility] DNP, RN, [facility]ped[facility] 07/12/2019 G47.00 Insomnia, unspecified Matilde Garcia DNP, RN, [facility] 07/11/2019 R53.83 Other fatigue Chloé Abdalla NP 07/11/2019 N95.1 Menopausal and female climacteric Chloé Abdalla NP states 07/11/2019 G47.00 Insomnia, unspecified Chloé Abdalla NP 07/05/2019 G47.33 Obstructive sleep apnea (adult) Angela Gonzalez MD (pediatric) 04/16/2019 R06.83 Snoring Angela Gonzalez MD 03/28/2019 R06.83 Snoring Angela Gonzalez MD 03/28/2019 R53.83 Other fatigue Angela Gonzalez MD Plan of Treatment Future Appointment(s):11/12/2019 3:00 pm - Chloé Abdalla NP at [facility]09/17/2019 3:00 pm - Matilde Garcia DNP, RN, [employer]-BC at [facility]09/06/2019 - ROVERTO Ortega-CdeZ30.432 Encounter for removal of intrauterine contraceptive deviceComments:Please call if you experience increased cramping or bleeding following the IUD removalFollow up:as needed Functional Status Description No Information Available Mental Status Description No Information Available Referrals Description No Information Available
--- OUTSIDE RECORDS SUMMARY | 2019-09-20 12:15 | XMS REPORT | Continuity of Care Document ---
:1970 External Reference #:[id number] Author Name Chloé Abdalla NP (transmitted by agent of provider Janeen Javier) Address [address], [place] [address] Care Team Providers Name Role Phone Leti Chapman MD - Internal Care Team Information Manufacturing Engineering Intern Medicine Problems Description No Information Available Social History Type Date Description Comments Sex Unknown Tobacco Use Start: Unknown Never Smoked Cigarettes Smoking Status Reviewed: 07/30/19 Never Smoked Cigarettes ETOH Use Drinks 4 [...] Available Vital Signs Date Vital Result Comment 07/30/2019 3:43pm Height 69 inches 5'9" Weight 188.00 lb Heart Rate 51 /min BP Systolic 127 mmHg BP Diastolic 80 mmHg Body Temperature 97.4 F O2 % BldC Oximetry 99 % BMI (Body Mass Index) 27.8 kg/m2 07/12/2019 9:19am Height 69 inches 5'9" Weight 185.25 lb Heart Rate 72 /min BP Systolic Sitting 134 mmHg Rue reg cuff BP Diastolic Sitting 76 mmHg Rue reg cuff O2 % BldC Oximetry 98 % On Ra BMI (Body Mass Index) 27.4 kg/m2 Results Test Acquired Date Facility Test Result H/L Range Note CBC Auto 07/12/2019 [facility] White Blood 4.6 10^3/uL Normal 3.5-10.[address] [place] [address] [phone] Red Blood Count 4.72 10^6/uL Normal 3.70-4.87 [...] % Nucleated Red Blood Cells % 0.0 Comp Metabolic 07/12/2019 [facility] Sodium 139 mmol/L Normal 135-[address] [place] [address] [phone] Potassium 4.5 mmol/L Normal 3.5-5.0 Chloride 104 [...] Egfr Non- 80.2 >60 Egfr 97.1 >60 1 Lipid Profile 07/12/2019 [facility] Triglycerides 42 mg/dL 2 (Trig/Chol/HDL) [address] [place] [address] [phone] Cholesterol 198 mg/dL 3 HDL Cholesterol 86.4 mg/dL 4 LDL Cholesterol 103 mg/dL 5 Laboratory test 07/12/2019 [facility] CRP High 1.34 mg/L < 2.[address] [place] [address] [phone] TSH (Thyroid Stim Horm) 0.74 mcIU/mL Normal 0.34-5.60 Free T4 (Free Thyroxine) 1.02 ng/dL Normal 0.61-1.12 T3 Free 3.20 pg/mL Normal 2.5-3.9 Thyroxine 7.16 g/dL Normal 6.09-12.23 T3 Total 91 ng/dL Normal 87-178 Thyroperoxidase AB 0.25 IU/mL Normal <9 Vitamin D Total 25(Oh) 25.5 ng/mL Normal 20-50 6 Folic Acid (Folate) 5.21 ng/mL >3.99 Insulin Level 2.9 mcIU/mL Normal 2.0-16.0 Vitamin B12 364 pg/mL Normal 180-914 7 Thyroglobulin AB 2.6 IU/mL <4.0 Hemoglobin A1c (Glyco HGB) 5.2 % Normal 4.0-5.6 8 Copper, Serum 1.26 g/mL 0.75-1.45 9 Zinc Serum 0.78 g/mL 0.66-1.10 10 Transglutaminase Igg 07/12/2019 [facility] Tissue <1.2 11 & Iga [address] Transglutaminase IgA U/[place] [address] Ab [phone] Tissue Transglutaminase IgG Ab <1.2 U/mL 12 Laboratory test 07/12/2019 [facility] T3 Reverse 18 ng/dL 10- 24 [address] [place] [address] [phone] Celiac Hla 07/12/2019 [facility] Hla-Dqa1 SEE BELOW [address] [place] [address] [phone] Hla-[id number] SEE BELOW 15 Celiac Gene Pairs Present? Yes Celiac Gene Interpretation See Comment 16 Gliadin (Deamidated) 07/12/2019 [facility] Gliadin IgG <10.0 U 17 Igg/Iga AB [address] [place] [address] [phone] Gliadin IgA <10.0 U 18 Laboratory test 07/11/2019 [facility] Copper, Serum <pending> finding [address] [place] [address] [phone] Laboratory test 07/11/2019 [facility] Hemoglobin A1c <pending> finding [address] (Glyco HGB) [place] [address] [phone] Insulin Level <pending> Laboratory test finding 07/11/2019 [facility] T3 Free <pending> [address] [place] [address] [phone] T3 Reverse <pending> T3 Total <pending> Zinc Serum <pending> Vitamin D Total 25(Oh) <pending> Vitamin B12 And Folate 07/11/2019 [facility] Vitamin B12 < pending> Serum [address] [place] [address] [phone] Folic Acid (Folate) <pending> Thyroid Panel 07/11/2019 [facility] Free T4 (Free <pending> [address] Thyroxine) [place] [address] [phone] Thyroxine <pending> TSH (Thyroid Stim Horm) <pending> Laboratory test 07/11/2019 [facility] CRP High Sensitivity < pending> finding [address] [place] [address] [phone] Anti-Thyroid 07/11/2019 [facility] Thyroperoxidase AB <pending> Antibodies [address] [place] [address] [phone] Thyroglobulin AB <pending> Laboratory test 07/11/2019 [facility] Sex Hormone Binding < pending> finding [address] [place] [address] [phone] Laboratory test 07/11/2019 [facility] Progesterone <pending> finding [address] [place] [address] [phone] FSH And LH 07/11/2019 [facility] FSH (Follicle Stim <pending> [address] Hormone) [place] [address] [phone] LH (Lutenizing Hormone) <pending> Laboratory test finding 07/11/2019 [facility] Dhea <pending> [address] [place] [address] [phone] Estradiol <pending> 1 Because ethnic data is not always readily [...] 15-29 5 Kidney failure <15 (or dialysis) 2 Desirable: <150 Borderline High: 150-199 High: 200-499 Very High: >500 3 Desirable: <200 Borderline High: 200-239 High: >239 4 Low: <40 Desirable: 40-60 High: >60 5 Desirable: <100 Near Optimal: 100-129 Borderline High: 130-159 High: 160-189 Very High: >189 6 Total 25-Hydroxyvitamin D2 and D3 (25-OH-VitD) <10 ng/mL (severe deficiency) 10-19 ng/mL (mild to moderate deficiency) 20-50 ng/mL (optimum levels) 51-80 ng/mL (increased risk of hypercalciuria) >80 ng/mL (toxicity possible) 7 Normal Range 180 to 914 Indeterminate Range 145 to 180 Deficient Range <145 8 Therapeutic target for the treatment of diabetes mellitus patients is <7% HBA1C, and in selective patients <6.0%. Please refer to [place] Diabetes Association diabetic care guidelines for further information. 9 ADDITIONAL INFORMATION This test was developed and its performance characteristics determined by [facility] in a manner consistent with CLIA requirements. This test has not been cleared or approved by the U.S. Food and Drug Administration. Test Performed by: [facility] [place] [address] English As A Second Language Teacher: Lisandro Steward M.D. Ph.D.; CLIA# [id number] 10 ADDITIONAL INFORMATION This test was developed and its performance characteristics determined by [facility] in a manner consistent with CLIA requirements. This test has not been cleared or approved by the U.S. Food and Drug Administration. Test Performed by: [facility] [place] [address] English As A Second Language Teacher: Lisandro Steward M.D. Ph.D.; CLIA# [id number] 11 REFERENCE VALUE <4.0 (Negative) 12 REFERENCE VALUE <6.0 (Negative) Test Performed by: [facility] [place] [address] English As A Second Language Teacher: Lisandro Steward M.D. Ph.D.; CLIA# [id number] 13 ADDITIONAL INFORMATION This test was developed and its performance characteristics determined by [facility] in a manner consistent with CLIA requirements. This test has not been cleared or approved by the U.S. Food and Drug Administration. Test Performed by: [facility] [place] [address] English As A Second Language Teacher: Lisandro Steward M.D. Ph.D.; CLIA# [id number] 14 RESULT: 01:03,03 REFERENCE VALUE Not Applicable 15 RESULT: 03:02,06:03 DQ Serologic Equivalent: 8,6 REFERENCE VALUE Not Applicable 16 These genes are permissive for celiac disease. The absence of HLA celiac permissive genes would make the presence of celiac disease unlikely. However, these genes can also be present in the normal population. ADDITIONAL INFORMATION Method: Molecular typing of HLA antigens performed using reverse SSOP and/or SSP methods, reported as serological equivalents and low to medium resolution molecular values. Test Performed by: [facility] - [address] [address] English As A Second Language Teacher: Lisandro Steward M.D. Ph.D.; CLIA# [id number] 17 REFERENCE VALUE <20.0 (Negative) Test Performed by: [facility] [address] [id number] English As A Second Language Teacher: Lisandro Steward M.D. Ph.D.; CLIA# [id number] 18 REFERENCE VALUE <20.0 (Negative) Procedures Date Code Description Status 07/05/2019 04307 Polysomnography Sleep Staging 4+ Parameters Completed 04/16/2019 16551 Sleep Study Unattended,HRT Rate,Oxygen Sat,Resp Completed Effort/Airflow Medical Devices Description No Information Available Encounters Type Date Location Provider Dx Diagnosis Office Visit 07/12/2019 [facility] And Matilde Garcia, G47.33 Obstructive sleep 9:30a [facility], RN, [employer]-MINO apnea (adult) [facility] (pediatric) G47.00 Insomnia, unspecified Office Visit 03/28/2019 7:30a Pulmonology And Sleep Angela Gonzalez, R06.83 [facility] R53.83 Other fatigue Assessments Date Code Description Provider 07/30/2019 R53.83 Other fatigue Chloé Abdalla NET DEVELOPER 07/30/2019 N95.1 Menopausal and female climacteric Chloé Abdalla, NET DEVELOPER states 07/12/2019 G47.33 Obstructive sleep apnea (adult) Matilde Garcia DNP, RN, [facility] (pediatric) 07/12/2019 G47.00 Insomnia, unspecified Matilde Garcia DNP, RN, ROBERT 07/11/2019 R53.83 Other fatigue Chloé Abdalla NET DEVELOPER 07/11/2019 N95.1 Menopausal and female climacteric Chloé Abdalla, NET DEVELOPER states 07/11/2019 G47.00 Insomnia, unspecified Chloé Abdalla, NET DEVELOPER 07/05/2019 G47.33 Obstructive sleep apnea (adult) Angela Gonzalez MD (pediatric) 04/16/2019 R06.83 Snoring Angela Gonzalez MD 03/28/2019 R06.83 Snoring Angela Gonzalez MD 03/28/2019 R53.83 Other fatigue Angela Gonzalez MD Plan of Treatment Future Appointment(s):08/20/2019 10:00 am - Chloé Abdalla NP at [facility]09/17/2019 3:00 pm - Matilde Garcia DNP, RN, ROVERTO-BC at [facility]07/30/2019 - Chloé Abdalla, NPR53.83 Other fatigueFollow up:follow up in 3 weeksRecommendations:add Vitamin D3 with K2 2000 units daily B complex 1 capsule daily Plan to test [id number] Menopausal and female climacteric statesRecommendations:Plan to test hormones Functional Status Description No Information Available Mental Status Description No Information Available Referrals Description No Information Available
--- OUTSIDE RECORDS SUMMARY | 2019-09-20 12:15 | XMS REPORT | Continuity of Care Document ---
:1970 External Reference #:[id number] Author Name Chloé Abdalla NP (transmitted by agent of provider Suma Matson) Address [facility] [facility], [place] [address] Care Team Providers Name Role Phone Leti Chapman MD - Internal Care Team Information Manager Office Medicine Problems Description No Information Available Social History Type Date Description Comments Sex Unknown Tobacco Use Start: Unknown Never Smoked Cigarettes Smoking Status Reviewed: 08/20/19 Never Smoked Cigarettes ETOH Use Drinks 4 [...] Available Vital Signs Date Vital Result Comment 08/20/2019 10:03am Height 69 inches 5'9" Weight 188.00 lb Heart Rate 67 /min BP Systolic 116 mmHg BP Diastolic 68 mmHg Body Temperature 97.0 F O2 % BldC Oximetry 99 % BMI (Body Mass Index) 27.8 kg/m2 07/30/2019 3:43pm Height 69 inches 5'9" Weight 188.00 lb Heart Rate 51 /min BP Systolic 127 mmHg BP Diastolic 80 mmHg Body Temperature 97.4 F O2 % BldC Oximetry 99 % BMI (Body Mass Index) 27.8 kg/m2 Results Test Acquired Date Facility Test Result H/L Range Note Laboratory test 07/30/2019 [facility] Progesterone 0.1 ng/mL [address] [place] [address] [phone] Estradiol <40 pg/mL 2 FSH (Follicle Stim Hormone) 67.1 mIU/mL 3 LH (Lutenizing Hormone) 29.6 mIU/mL 4 Sex Hormone Binding Globulin 90 nmol/L 5 Estradiol, Confirmatory, S <10 pg/mL 6 Testosterone Free 07/30/2019 [facility] Free 0.13 0.06-0.92 7 & Total [address] Testosterone ng/[place] [address] ng/dl [phone] Testosterone 16 ng/dL 8-60 8 Laboratory test 07/30/2019 [facility] Dhea 2.1 ng/mL <6.0 [address] [place] [address] [phone] Gliadin (Deamidated) 07/12/2019 [facility] Gliadin IgG <10.0 U 10 Igg/Iga AB [address] [place] [address] [phone] Gliadin IgA <10.0 U 11 Celiac Hla 07/12/2019 [facility] Hla-Dqa1 SEE BELOW [address] [place] [address] [phone] Hla-DQB1 SEE BELOW 13 Celiac Gene Pairs Present? Yes Celiac Gene Interpretation See Comment 14 Laboratory test 07/12/2019 [facility] T3 Reverse 18 ng/dL 10- [address] [place] [address] [phone] Transglutaminase 07/12/2019 [facility] Tissue <1.2 16 Igg & Iga [address] Transglutaminase U/[place] [address] IgA Ab [phone] Tissue Transglutaminase IgG Ab <1.2 U/mL 17 Laboratory test 07/12/2019 [facility] CRP High 1.34 mg/L < 2.[address] [place] [address] [phone] TSH (Thyroid Stim Horm) 0.74 mcIU/mL Normal [...] 0.78 g/mL 0.66-1.10 22 Lipid Profile 07/12/2019 [facility] Triglycerides 42 mg/dL 23 (Trig/Chol/HDL) [address] [place] [address] [phone] Cholesterol 198 mg/dL 24 HDL Cholesterol 86.4 mg/dL 25 LDL Cholesterol 103 mg/dL 26 Comp Metabolic 07/12/2019 [facility] Sodium 139 mmol/L Normal 135-[address] [place] [address] [phone] Potassium 4.5 mmol/L Normal 3.5-5.0 Chloride 104 [...] Egfr 97.1 >60 27 CBC Auto 07/12/2019 [facility] White Blood 4.6 10^3/uL Normal 3.5-10.[address] [place] [address] [phone] Red Blood Count 4.72 10^6/uL Normal 3.70-4.87 [...] Blood Cells % 0.0 Thyroid Panel 07/11/2019 [facility] Free T4 (Free <pending> Thyroxine) [place] [address] [phone] Thyroxine <pending> TSH (Thyroid Stim Horm) <pending> Vitamin B12 And Folate 07/11/2019 [facility] Vitamin B12 < pending> [place] [address] [phone] Folic Acid (Folate) <pending> Laboratory test finding 07/11/2019 [facility] T3 Free <pending> [place] [address] [phone] T3 Reverse <pending> T3 Total <pending> Zinc Serum <pending> Vitamin D Total 25(Oh) <pending> Laboratory test 07/11/2019 [facility] Hemoglobin A1c <pending> finding (Glyco HGB) [place] [address] [phone] Insulin Level <pending> Laboratory test 07/11/2019 [facility] Copper, Serum <pending> finding [address] [place] [address] [phone] Laboratory test 07/11/2019 [facility] CRP High Sensitivity < pending> [place] [address] [phone] Anti-Thyroid 07/11/2019 [facility] Thyroperoxidase AB <pending> [place] [address] [phone] Thyroglobulin AB <pending> Laboratory test 07/11/2019 [facility] Sex Hormone Binding < pending> finding [place] [address] [phone] Laboratory test 07/11/2019 [facility] Progesterone <pending> [place] [address] [phone] FSH And LH 07/11/2019 [facility] FSH (Follicle Stim <pending> DRIVE Hormone) [place] [address] [phone] LH (Lutenizing Hormone) <pending> Laboratory test finding 07/11/2019 [facility] Dhea <pending> [address] [place] [address] [phone] Estradiol <pending> 1 Female reference ranges for [...] REFERENCE VALUE 18-144 (non-) Test Performed by: [facility] [place] [address] Pump Mechanic: Lisandro Steward M.D. Ph.D.; CLIA# [id number] 6 REFERENCE VALUE Premenopausal: 15-350 (E2 levels vary widely through the menstrual cycle.) Postmenopausal: <10 ADDITIONAL INFORMATION This test was developed and its performance characteristics determined by [facility] in a manner consistent with CLIA requirements. This test has not been cleared or approved by the U.S. Food and Drug Administration. Test Performed by: [facility] [place] [address] Pump Mechanic: Lisandro Steward M.D. Ph.D.; CLIA# [id number] 7 ADDITIONAL INFORMATION Testing performed by [facility]. This test was developed and its performance characteristics determined by [facility] in a manner consistent with CLIA requirements. This test has not been cleared or approved by the U.S. Food and Drug Administration. 8 ADDITIONAL INFORMATION Testing performed by Liquid Chromat[facility]-Tandem Mass Spectrometry (LC-MS/MS). This test was developed and its performance characteristics determined by [facility] in a manner consistent with CLIA requirements. This test has not been cleared or approved by the U.S. Food and Drug Administration. Test Performed by: [facility] [place] [address] Pump Mechanic: Lisandro Steward M.D. Ph.D.; CLIA# [id number] 9 ADDITIONAL INFORMATION This test was developed and its performance characteristics determined by [facility] in a manner consistent with CLIA requirements. This test has not been cleared or approved by the U.S. Food and Drug Administration. Test Performed by: [facility] [place] [address] Pump Mechanic: Lisandro Steward M.D. Ph.D.; CLIA# [id number] 10 REFERENCE VALUE <20.0 (Negative) Test Performed by: [facility] [place] [address] Pump Mechanic: Lisandro Steward M.D. Ph.D.; CLIA# [id number] 11 REFERENCE VALUE <20.0 (Negative) 12 RESULT: [...] medium resolution molecular values. Test Performed by: [place] [id number] Pump Mechanic: Lisandro Steward M.D. Ph.D.; CLIA# [id number] 15 ADDITIONAL INFORMATION This test was developed and its performance characteristics determined by [facility] in a manner consistent with CLIA requirements. This test has not been cleared or approved by the U.S. Food and Drug Administration. Test Performed by: [facility] [place] [address] Pump Mechanic: Lisandro Steward M.D. Ph.D.; CLIA# [id number] 16 REFERENCE VALUE <4.0 (Negative) 17 REFERENCE VALUE <6.0 (Negative) Test Performed by: [facility] [place] [address] Pump Mechanic: Lisandro Steward M.D. Ph.D.; CLIA# [id number] 18 Total 25-Hydroxyvitamin D2 and D3 (25-OH-VitD) [...] in selective patients <6.0%. Please refer to [place] [employer] diabetic care guidelines for further information. 21 ADDITIONAL INFORMATION This test was developed and its performance characteristics determined by [facility] in a manner consistent with CLIA requirements. This test has not been cleared or approved by the U.S. Food and Drug Administration. Test Performed by: [place] [address] Pump Mechanic: Lisandro Steward M.D. Ph.D.; CLIA# [id number] 22 ADDITIONAL INFORMATION This test was developed and its performance characteristics determined by [facility] in a manner consistent with CLIA requirements. This test has not been cleared or approved by the U.S. Food and Drug Administration. Test Performed by: [facility] [place] [address] Pump Mechanic: Lisandro Steward M.D. Ph.D.; CLIA# [id number] 23 Desirable: <150 Borderline High: 150-199 High: [...] dialysis) Procedures Date Code Description Status 07/05/2019 21091 Polysomnography Sleep Staging 4+ Parameters Completed 04/16/2019 35837 Sleep Study Unattended,HRT Rate,Oxygen Sat,Resp Completed Effort/Airflow Medical Devices Description No Information Available Encounters Type Date Location Provider Dx Diagnosis Office Visit 07/12/2019 Pulmonology And Matilde Garcia, G47.33 Obstructive sleep 9:30a [facility] RN, LABORATORY [employer] BLOWER-BC apnea (adult) [facility] (pediatric) G47.00 Insomnia, unspecified Office Visit 07/11/2019 1:00p [email or web address] Chloé Abdalla, R53.83 Other fatigue [facility] EMERGENCY SERVICE WORKER N95.1 Menopausal and female climacteric states G47.00 Insomnia, unspecified Office Visit 03/28/2019 7:30a Pulmonology And Sleep Angela Gonzalez, R06.83 [facility] R53.83 Other fatigue Assessments Date Code Description Provider 08/20/2019 R53.83 Other fatigue Chloé Rm, EMERGENCY SERVICE WORKER 08/20/2019 N95.1 Menopausal and female climacteric Chloé Rm, EMERGENCY SERVICE WORKER states 08/20/2019 K59.00 Constipation, unspecified Chloé Abdalla, EMERGENCY SERVICE WORKER 07/30/2019 R53.83 Other fatigue Chloé Rm, EMERGENCY SERVICE WORKER 07/30/2019 N95.1 Menopausal and female climacteric Chloé Abdalla, EMERGENCY SERVICE WORKER states 07/12/2019 G47.33 Obstructive sleep apnea (adult) Matilde Garcia DNP, RN, LABORATORY [employer] BLOWER-MINO (pediatric) 07/12/2019 G47.00 Insomnia, unspecified Matilde Garcia DNP, RN, LABORATORY AP[employer]AT[employer] GLASS BLOWER-BC 07/11/2019 R53.83 Other fatigue Chloé Rm, EMERGENCY SERVICE WORKER 07/11/2019 N95.1 Menopausal and female climacteric Chloé Rm, EMERGENCY SERVICE WORKER states 07/11/2019 G47.00 Insomnia, unspecified Chloé Rm, EMERGENCY SERVICE WORKER 07/05/2019 G47.33 Obstructive sleep apnea (adult) Angela Gonzalez MD (pediatric) 04/16/2019 R06.83 Snoring Angela Gonzalez MD 03/28/2019 R06.83 Snoring Angela Gonzalez MD 03/28/2019 R53.83 Other fatigue Angela Gonzalez MD Plan of Treatment Future Appointment(s):09/06/2019 3:00 pm - Kathrine Ram, ROVERTO-Cde at [facility]09/17/2019 3:00 pm - Matilde Garcia DNP, RN, LABORATORY APPARAT[employer] GLASS BLOWER-BC at [facility]08/20/2019 - Chloé Abdalla, NPR53.83 Other fatigueFollow up:follow up 2 months after IUD has been removed - call to make an appointment Please make an appointment with Kathrine Ram or Dr. Villarreal for IUD removal.Recommendations:continue Paleo Diet - nutrient dense - whole foods, mostly plant based, with protein, healthy fats Continue B vitamin complex and Vitamin D3N95.1 Menopausal and female climacteric statesRecommendations:Recommend follow up with Dr. Villarreal or Kathrine Ram EMERGENCY SERVICE WORKER for IUD removal It appears you are in Menopause but hard to determine due to no period in many years due to IUD placement.K59.00 Constipation, unspecifiedRecommendations:Increase water intake, vegetable and fiber intake Increase exercise/movement Functional Status Description No Information Available Mental Status Description No Information Available Referrals Description No Information Available
--- OUTSIDE RECORDS SUMMARY | 2019-09-20 12:15 | XMS REPORT | Continuity of Care Document ---
:1970 External Reference #:[id number] Author Name Matilde Garcia, NIKITA, RN, VICE PRESIDENT OF CONSULTING SERVICES-BC (transmitted by agent of provider Angela Jeffers) Address [address] [facility], [address] [place] [id number] Care Team Providers Name Role Phone Leti Chapman MD - Internal Care Team Information Motor Vehicle Representative Medicine Problems Description No Information Available Social History Type Date Description Comments Sex Unknown Tobacco Use Start: Unknown Never Smoked Cigarettes Smoking Status Reviewed: 09/17/19 Never Smoked Cigarettes ETOH Use Drinks 4 [...] Available Vital Signs Date Vital Result Comment 09/17/2019 2:52pm Height 69 inches 5'9" Weight 189.00 lb Heart Rate 66 /min BP Systolic 104 mmHg BP Diastolic 60 mmHg O2 % BldC Oximetry 99 % BMI (Body Mass Index) 27.9 kg/m2 09/06/2019 3:14pm Height 69 inches 5'9" Weight 193.00 lb Heart Rate 64 /min BP Systolic 122 mmHg BP Diastolic 70 mmHg O2 % BldC Oximetry 99 % BMI (Body Mass Index) 28.5 kg/m2 Results Test Acquired Date Facility Test Result H/L Range Note Laboratory test 07/30/2019 [facility] Progesterone 0.1 ng/mL [address] [place] [address] [phone] Estradiol <40 pg/mL 2 FSH (Follicle Stim Hormone) 67.1 mIU/mL 3 LH (Lutenizing Hormone) 29.6 mIU/mL 4 Sex Hormone Binding Globulin 90 nmol/L 5 Estradiol, Confirmatory, S <10 pg/mL 6 Testosterone Free 07/30/2019 [facility] Free 0.13 0.06-0.92 7 & Total [address] Testosterone ng/[place] [address] ng/dl [phone] Testosterone 16 ng/dL 8-60 8 Laboratory test 07/30/2019 [facility] Dhea 2.1 ng/mL <6.0 [address] [place] [address] [phone] Gliadin (Deamidated) 07/12/2019 [facility] Gliadin IgG <10.0 U 10 Igg/Iga AB [address] [place] [address] [phone] Gliadin IgA <10.0 U 11 Celiac Hla 07/12/2019 [facility] Hla-[id number] SEE BELOW [address] [place] [address] [phone] [id number] SEE BELOW 13 Celiac Gene Pairs Present? Yes Celiac Gene Interpretation See Comment 14 Laboratory test 07/12/2019 [facility] T3 Reverse 18 ng/dL 10- 24 [address] [place] [address] [phone] Transglutaminase 07/12/2019 [facility] Tissue <1.2 16 Igg & Iga [address] Transglutaminase U/[place] [address] IgA Ab [phone] Tissue Transglutaminase IgG Ab <1.2 U/mL 17 Laboratory test 07/12/2019 [facility] CRP High 1.34 mg/L < 2.[address] [place] [address] [phone] TSH (Thyroid Stim Horm) 0.74 mcIU/mL Normal [...] 0.78 g/mL 0.66-1.10 22 Lipid Profile 07/12/2019 [facility] Triglycerides 42 mg/dL 23 (Trig/Chol/HDL) [address] [place] [address] [phone] Cholesterol 198 mg/dL 24 HDL Cholesterol 86.4 mg/dL 25 LDL Cholesterol 103 mg/dL 26 Comp Metabolic 07/12/2019 [facility] Sodium 139 mmol/L Normal 135-[address] [place] [address] [phone] Potassium 4.5 mmol/L Normal 3.5-5.0 Chloride 104 [...] Egfr 97.1 >60 27 CBC Auto 07/12/2019 [facility] White Blood 4.6 10^3/uL Normal 3.5-10.[address] [place] [address] [phone] Red Blood Count 4.72 10^6/uL Normal 3.70-4.87 [...] Blood Cells % 0.0 Thyroid Panel 07/11/2019 [facility] Free T4 (Free <pending> DRIVE Thyroxine) [place] [address] [phone] Thyroxine <pending> TSH (Thyroid Stim Horm) <pending> Vitamin B12 And Folate 07/11/2019 [facility] Vitamin B12 < pending> [place] [address] [phone] Folic Acid (Folate) <pending> Laboratory test finding 07/11/2019 [facility] T3 Free <pending> [place] [address] [phone] T3 Reverse <pending> T3 Total <pending> Zinc Serum <pending> Vitamin D Total 25(Oh) <pending> Laboratory test 07/11/2019 [facility] Hemoglobin A1c <pending> finding DRIVE (Glyco HGB) [place] [address] [phone] Insulin Level <pending> Laboratory test 07/11/2019 [facility] Copper, Serum <pending> finding [address] [place] [address] [phone] Laboratory test 07/11/2019 [facility] CRP High Sensitivity < pending> finding [address] [place] [address] [phone] Anti-Thyroid 07/11/2019 [facility] Thyroperoxidase AB <pending> Antibodies [address] [place] [address] [phone] Thyroglobulin AB <pending> Laboratory test 07/11/2019 [facility] Sex Hormone Binding < pending> [address] [place] [address] [phone] Laboratory test 07/11/2019 [facility] Progesterone <pending> [place] [address] [phone] FSH And LH 07/11/2019 [facility] FSH (Follicle Stim <pending> [address] Hormone) [place] [address] [phone] LH (Lutenizing Hormone) <pending> Laboratory test finding 07/11/2019 [facility] Dhea <pending> [address] [place] [address] [phone] Estradiol <pending> 1 Female reference ranges for [...] REFERENCE VALUE 18-144 (non-) Test Performed by: [facility] [place] [address] Personal Investment Adviser: Lisandro Steward M.D. Ph.D.; CLIA# [id number] 6 REFERENCE VALUE Premenopausal: 15-350 (E2 levels vary widely through the menstrual cycle.) Postmenopausal: <10 ADDITIONAL INFORMATION This test was developed and its performance characteristics determined by [facility] in a manner consistent with CLIA requirements. This test has not been cleared or approved by the U.S. Food and Drug Administration. Test Performed by: [facility] [place] [address] Personal Investment Adviser: Lisandro Steward M.D. Ph.D.; CLIA# [id number] 7 ADDITIONAL INFORMATION Testing performed by [facility]. This test was developed and its performance characteristics determined by [facility] in a manner consistent with CLIA requirements. This test has not been cleared or approved by the U.S. Food and Drug Administration. 8 ADDITIONAL INFORMATION Testing performed by Liquid Chromatography-Tandem Mass Spectrometry (LC-MS/MS). This test was developed and its performance characteristics determined by [facility] in a manner consistent with CLIA requirements. This test has not been cleared or approved by the U.S. Food and Drug Administration. Test Performed by: [facility] [place] [address] Personal Investment Adviser: Lisandro Steward M.D. Ph.D.; CLIA# [id number] 9 ADDITIONAL INFORMATION This test was developed and its performance characteristics determined by [facility] in a manner consistent with CLIA requirements. This test has not been cleared or approved by the U.S. Food and Drug Administration. Test Performed by: [facility] [place] [address] Personal Investment Adviser: Lisandro Steward M.D. Ph.D.; CLIA# [id number] 10 REFERENCE VALUE <20.0 (Negative) Test Performed by: [facility] [place] [address] Personal Investment Adviser: Lisandro Steward M.D. Ph.D.; CLIA# [id number] 11 REFERENCE VALUE <20.0 (Negative) 12 RESULT: [...] medium resolution molecular values. Test Performed by: [facility] [place] [id number] Personal Investment Adviser: Lisandro Steward M.D. Ph.D.; CLIA# [id number] 15 ADDITIONAL INFORMATION This test was developed and its performance characteristics determined by [facility] in a manner consistent with CLIA requirements. This test has not been cleared or approved by the U.S. Food and Drug Administration. Test Performed by: [facility] [place] [address] Personal Investment Adviser: Lisandro Steward M.D. Ph.D.; CLIA# [id number] 16 REFERENCE VALUE <4.0 (Negative) 17 REFERENCE VALUE <6.0 (Negative) Test Performed by: [facility] [place] [address] Personal Investment Adviser: Lisandro Steward M.D. Ph.D.; CLIA# [id number] 18 Total 25-Hydroxyvitamin D2 and D3 (25-OH-VitD) [...] in selective patients <6.0%. Please refer to [place] [employer] diabetic care guidelines for further information. 21 ADDITIONAL INFORMATION This test was developed and its performance characteristics determined by [facility] in a manner consistent with CLIA requirements. This test has not been cleared or approved by the U.S. Food and Drug Administration. Test Performed by: [place] [address] Personal Investment Adviser: Lisandro Steward M.D. Ph.D.; CLIA# [id number] 22 ADDITIONAL INFORMATION This test was developed and its performance characteristics determined by [facility] in a manner consistent with CLIA requirements. This test has not been cleared or approved by the U.S. Food and Drug Administration. Test Performed by: [facility] [place] [address] Personal Investment Adviser: Lisandro Steward M.D. Ph.D.; CLIA# [id number] 23 Desirable: <150 Borderline High: 150-199 High: [...] dialysis) Procedures Date Code Description Status 07/05/2019 09916 Polysomnography Sleep Staging 4+ Parameters Completed 04/16/2019 78549 Sleep Study Unattended,HRT Rate,Oxygen Sat,Resp Completed Effort/Airflow Medical Devices Description No Information Available Encounters Type Date Location Provider Dx Diagnosis Office Visit 07/30/2019 [facility] Chloé Abdalla, CHRIS R53.83 Other fatigue 3:30p [facility] N95.1 Menopausal and female climacteric states Office Visit 07/12/2019 [facility] G47.33 Obstructive sleep 9:30a [facility], RN, apnea (adult) [facility]- (pediatric) G47.00 Insomnia, unspecified Office Visit 07/11/2019 1:00p [facility] Chloé Abadlla, R53.83 Other fatigue [facility] [employer]PA[employer] N95.1 Menopausal and female climacteric states G47.00 Insomnia, unspecified Office Visit 03/28/2019 7:30a [facility] Angela Gonzalez, R06.83 [facility] R53.83 Other fatigue Assessments Date Code Description Provider 09/17/2019 G47.33 Obstructive sleep apnea (adult) Matilde Garcia DNP, RN, (pediatric) [facility] 09/06/2019 Z30.432 Encounter for removal of Kathrine Ram [facility] intrauterine contraceptive device 08/20/2019 R53.83 Other fatigue Chloé Abdalla NP 08/20/2019 N95.1 Menopausal and female climacteric Chloé Burch, [employer] REPAIRER states 08/20/2019 K59.00 Constipation, unspecified Chloé Rm, [employer] REPAIRER 07/30/2019 R53.83 Other fatigue Chloé Abdalla NP 07/30/2019 N95.1 Menopausal and female climacteric Chloé Burch, [employer] REPAIRER states 07/12/2019 G47.33 Obstructive sleep apnea (adult) Matilde Garcia DNP, RN, (pediatric) [facility] 07/12/2019 G47.00 Insomnia, unspecified Matilde Garcia DNP, RN, VICE PRESIDENT OF CONSULTING SERVICES- 07/11/2019 R53.83 Other fatigue Chloé Abdalla NP 07/11/2019 N95.1 Menopausal and female climacteric Chloé Abdalla NP states 07/11/2019 G47.00 Insomnia, unspecified Chloé Abdalla NP 07/05/2019 G47.33 Obstructive sleep apnea (adult) Angela Gonzalez MD (pediatric) 04/16/2019 R06.83 Snoring Angela Gonzalez MD 03/28/2019 R06.83 Snoring Angela Gonzalez MD 03/28/2019 R53.83 Other fatigue Angela Gonzalez MD Plan of Treatment Future Appointment(s):04/01/2020 3:00 pm - Matilde Garcia DNP, RN, VICE PRESIDENT OF CONSULTING SERVICES- at [facility]11/12/2019 3:00 pm - Chloé Abdalla NP at [facility]09/17/2019 - Matilde Garcia DNP RN, VICE PRESIDENT OF CONSULTING SERVICES- [facility] ADA47.33 Obstructive sleep apnea (adult) (pediatric)New Orders:[facility], Ordered: 09/17/19[facility]Home[facility], Ordered: 09/17/19Comments:NPSG 07/05/19 AHI 15.3/hour, marv oxygen 93%, wt 188# BMI 27.8On CPAP auto AHI 4.9/hour, normalFollow up:6 monthsRecommendations:Continue PAP device, Benefitting and compliant with treatment. You can order Masks on line recommend Advance small ( nasal measurement 1 1/4 inches), just at the cut off between small and regular size.Choose provider: LANA Butler, RN, VICE PRESIDENT OF CONSULTING SERVICES- or Angela Gonzalez MD Cleaning Wipe off mask daily(baby wipe-no scent, or warm water) Clean mask, tubing, filter, and water chamber weekly in mild no scent dish soap and water. Hang to dry. If you have any sleepiness while driving you MUST avoid operating a vehicle or machinery. If you have difficulty with your equipment, or need to replace your mask or hoses, please contact your homecare agency. A weight change of 20 pounds or more may have an effect on your equipment; if you are experiencing problems please call for an appointment. If you have any further questions, please call the [facility] at [phone]. Functional Status Description No Information Available Mental Status Description No Information Available Referrals Description No Information Available
[2019-09-20] MEDS ORDERED: Morphine 4 MG/ML VIAL (1 ml) 4 MG/ML VIAL IV ONE ×2 (12:29→14:28)
[2019-09-20] MEDS ORDERED: Ondansetron INJ* 2 MG/ML VIAL IV ONE (12:29)
[2019-09-20] MEDS ORDERED: Ketorolac INJ* 30 MG/ML 1 ML VIAL IV ONE (12:29)
[2019-09-20] MEDS ORDERED: NS 0.9% 1000 ML** 1,000 ML IV ONE ×2 (12:30→15:45)
[2019-09-20 13:15] LABS: ABS Lymphocytes 0.7 10^3/ul (1.0-4.8); ABS Monocytes 0.4 10^3/ul (0-0.8); ABS Neutrophils 10.7 10^3/ul (1.5-7.7); Hematocrit 39 % (35-47); Hemoglobin 13.1 g/dL (12.0-16.0); Lymphocyte % 5.6 %; Mean Corpuscular HGB Conc 34 g/dL (31-36); Mean Corpuscular Hemoglobin 31 pg (27-31); Mean Corpuscular Volume 91 fL (80-97); Mean Platelet Volume 7.8 fL (7.4-10.4); Platelet Count 238 10^3/uL (150-450); Red Blood Count 4.31 10^6 /uL (3.70-4.87); Red Cell Distribution Width 14 % (10-15); White Blood Count 11.8 10^3/uL (3.5-10.8)
[2019-09-20 13:33] LABS: Albumin/Globulin Ratio 1.8 (1-3); BUN/Creatinine Ratio 17.2 (8-20); C Reactive Protein 1.3 mg/L (<8.01); Calcium 8.5 mg/dL (8.6-10.3); EGFR African American 71.6 (>60); EGFR Non-African American 59.1 (>60); Globulin 2.2 g/dL (2-4); Magnesium 1.8 mg/dL (1.9-2.7); Potassium 3.9 mmol/L (3.5-5.0); Total Bilirubin 0.4 mg/dL (0.2-1.0); Total Protein 6.2 g/dL (6.4-8.9)
[2019-09-20] MEDS ORDERED: Metoclopramide IV* 5 MG/ML 2 ML VIAL IV ONE (14:29)
[2019-09-20 14:37] LABS: Urine Appearance Cloudy; Urine Bilirubin Negative (Negative); Urine Blood Negative (Negative); Urine Color Amber; Urine Glucose Negative (Negative); Urine Ketones 1+ (Negative); Urine Nitrite Negative (Negative); Urine Protein Negative (Negative); Urine Specific Gravity 1.018 (1.010-1.030); Urine Urobilinogen Negative (Negative)
[2019-09-20] MEDS ORDERED: Ondansetron INJ* 2 MG/ML VIAL IV PRN ×2 (15:23→19:13)
[2019-09-20] MEDS ORDERED: Acetaminophen TAB* 325 MG PO PRN (15:23)
[2019-09-20] MEDS ORDERED: Morphine INJ* 4 MG/ML 1 ML SYRINGE (NEW SYRINGE VERSION) IV PRN (15:23)
--- NOTE | 2019-09-20 15:26 | ED ---
Abdominal Pain/Female - HPI Summary HPI Summary: Patient is a 49-year-old otherwise healthy female with a history of hypothyroid and bipolar disorder presenting to the ED with left-sided flank pain. Patient has a known history of kidney stones, however has never passed one. She has never seen a urologist. She denies any fevers, sweats, chills. Symptoms began this morning, have been worsening. She denies any gross hematuria or other UTI symptoms. She does endorse nausea and vomiting since this a.m. No current modifying factors. - History of Current Complaint Chief Complaint: EDFlankPain Stated Complaint: LEFT SIDE PAIN PER PT Time Seen by Provider: 09/20/19 12:25 Hx Obtained From: Patient ?: No Onset/Duration: Sudden Onset Timing: Constant Severity Initially: Severe Severity Currently: Severe Pain Intensity: 10 Pain Scale Used: 0-10 Numeric Location: Flank Radiates: Yes Radiates to: LLQ Character: Sharp, Cramping Aggravating Factor(s): Nothing Alleviating Factor(s): Nothing Associated Signs and Symptoms: Positive: Nausea, Vomiting. Negative: Diaphoresis, Fever, Cough, Chest Pain, Blood in Stool, Urinary Symptoms, Vaginal Discharge, Diarrhea - Risk Factors Ectopic Risk Factor: Negative Ovarian Torsion Risk Factor: Negative Allergies/Adverse Reactions: Allergies Allergy/AdvReac Type Severity Reaction Status Date / Time Sulfa (Sulfonamide Allergy Hives Verified 09/20/19 12:04 Antibiotics) PMH/Surg Hx/FS Hx/Imm Hx Previously Healthy: Yes Endocrine/Hematology History: Reports: Hx Thyroid Disease Denies: Hx Diabetes Cardiovascular History: Denies: Hx Hypertension History: Denies: Hx Renal Disease Psychiatric History: Reports: Hx Schizophrenia, Hx Bipolar Disorder - Cancer History Hx Chemotherapy: No Hx Radiation Therapy: No - Surgical History Surgery Procedure, Year, and Place: WISDOM TEETH; NON-MALIGNANT NEVI REMOVED FROM LEG - Immunization History Hx Pertussis Vaccination: No Immunizations Up to Date: Yes Infectious Disease History: No Infectious Disease History: Denies: Hx Clostridium Difficile, Hx Hepatitis, Hx Human Immunodeficiency Virus (HIV), Hx of Known/Suspected MRSA, Hx Shingles, Hx Tuberculosis, Hx Known/ Suspected VRE, Hx Known/Suspected VRSA, History Other Infectious Disease, Traveled Outside the [place] in Last 30 Days - Family History Known Family History: Positive: None - Social History Occupation: Employed Full-time Lives: With Family Alcohol Use: Weekly Hx Substance Use: No Substance Use Type: Reports: None Hx Tobacco Use: No Smoking Status (MU): Never Smoked Tobacco Review of Systems Negative: Fever, Chills, Fatigue, Skin Diaphoresis Negative: Palpitations, Chest Pain Negative: Shortness Of Breath, Cough Positive: Abdominal Pain, Vomiting, Nausea. Negative: Diarrhea Positive: see HPI, flank pain Negative: Arthralgia, Myalgia Negative: Rash, Bruising Neurological: Negative All Other Systems Reviewed And Are Negative: Yes Physical Exam Triage Information Reviewed: Yes Vital Signs On Initial Exam: Initial Vitals Temp Pulse Resp BP Pulse Ox 97.4 F 66 20 142/72 100 09/20/19 12:02 09/20/19 12:02 09/20/19 12:02 09/20/19 12:02 09/20/19 12:02 Vital Signs Reviewed: Yes Appearance: Positive: Well-Appearing, Well-Nourished Skin: Positive: Warm, Skin Color Reflects Adequate Perfusion Head/Face: Positive: Normal Head/Face Inspection Eyes: Positive: EOMI, VALENTINO, Conjunctiva Clear Neck: Positive: Supple, Nontender, No Lymphadenopathy Respiratory/Lung Sounds: Positive: Clear to Auscultation, Breath Sounds Present Cardiovascular: Positive: Pulses are Symmetrical in both Upper and Lower Extremities Abdomen Description: Positive: Soft, CVA Tenderness (L). Negative: CVA Tenderness (R), Distended, Guarding Musculoskeletal: Positive: Normal, Strength/ROM Intact Neurological: Positive: Speech Normal Psychiatric: Positive: Normal, Affect/Mood Appropriate AVPU Assessment: Alert Procedures - Sedation Patient Received Moderate/Deep Sedation with Procedure: No Diagnostics - Vital Signs Vital Signs Temp Pulse Resp BP Pulse Ox 09/20/19 15:02 20 09/20/19 15:00 68 98 09/20/19 14:58 66 138/65 99 09/20/19 14:28 62 129/60 99 09/20/19 14:08 63 96 09/20/19 13:04 62 97 09/20/19 12:58 62 114/75 100 09/20/19 12:44 22 09/20/19 12:02 97.4 F 66 20 142/72 100 - Laboratory Lab Results: Lab Results 09/20/19 09/20/19 09/20/19 Range/Units 13:00 13:00 13:00 WBC 11.8 H (3.5-10.8) 10^3/uL RBC 4.31 (3.70-4.87) 10^6 /uL Hgb 13.1 (12.0-16.0) g/dL Hct 39 (35-47) % MCV 91 (80-97) fL MCH 31 (27-31) pg MCHC 34 (31-36) g/dL RDW 14 (10-15) % Plt Count 238 (150-450) 10^3/uL MPV 7.8 (7.4-10.4) fL Neut % (Auto) 90.9 % Lymph % (Auto) 5.6 % [place] % (Auto) 3.1 % Eos % (Auto) 0.0 % Baso % (Auto) 0.4 % Absolute Neuts (auto) 10.7 H (1.5-7.7) 10^3/ul Absolute Lymphs (auto) 0.7 L (1.0-4.8) 10^3/ul Absolute Monos (auto) 0.4 (0-0.8) 10^3/ul Absolute Eos (auto) 0.0 (0-0.6) 10^3/ul Absolute Basos (auto) 0.0 (0-0.2) 10^3/ul Absolute Nucleated RBC 0.0 10^3/ul Nucleated RBC % 0.0 Sodium 138 (135-145) mmol/L Potassium 3.9 (3.5-5.0) mmol/L Chloride 108 (101-111) mmol/L Carbon Dioxide 22 (22-32) mmol/L Anion Gap 8 (2-11) mmol/L BUN 17 (6-24) mg/dL Creatinine 0.99 H (0.51-0.95) mg/dL Est GFR ( Amer) 71.6 (>60) Est GFR (Non-Af Amer) 59.1 (>60) BUN/Creatinine Ratio 17.2 (8-20) Glucose 117 H (70-100) mg/dL Lactic Acid 1.2 (0.5-2.0) mmol/L Calcium 8.5 L (8.6-10.3) mg/dL Magnesium 1.8 L (1.9-2.7) mg/dL Total Bilirubin 0.40 (0.2-1.0) mg/dL AST 20 (13-39) U/L ALT 22 (7-52) U/L Alkaline Phosphatase 52 (34-104) U/L C-Reactive Protein 1.30 (<8.01) mg/L Total Protein 6.2 L (6.4-8.9) g/dL Albumin 4.0 (3.2-5.2) g/dL Globulin 2.2 (2-4) g/dL Albumin/Globulin Ratio 1.8 (1-3) Lipase 12 (11.0-82.0) U/L Urine Color Urine Appearance Urine pH (5-9) Ur Specific [place] (1.010-1.030) Urine Protein (Negative) Urine Ketones (Negative) Urine Blood (Negative) Urine Nitrate (Negative) Urine Bilirubin (Negative) Urine Urobilinogen (Negative) Ur Leukocyte Esterase (Negative) Urine Glucose (Negative) 09/20/19 Range/Units 14:08 WBC (3.5-10.8) 10^3/uL RBC (3.70-4.87) 10^6 /uL Hgb (12.0-16.0) g/dL Hct (35-47) % MCV (80-97) fL MCH (27-31) pg MCHC (31-36) g/dL RDW (10-15) % Plt Count (150-450) 10^3/uL MPV (7.4-10.4) fL Neut % (Auto) % Lymph % (Auto) % [place] % (Auto) % Eos % (Auto) % Baso % (Auto) % Absolute Neuts (auto) (1.5-7.7) 10^3/ul Absolute Lymphs (auto) (1.0-4.8) 10^3/ul Absolute Monos (auto) (0-0.8) 10^3/ul Absolute Eos (auto) (0-0.6) 10^3/ul Absolute Basos (auto) (0-0.2) 10^3/ul Absolute Nucleated RBC 10^3/ul Nucleated RBC % Sodium (135-145) mmol/L Potassium (3.5-5.0) mmol/L Chloride (101-111) mmol/L Carbon Dioxide (22-32) mmol/L Anion Gap (2-11) mmol/L BUN (6-24) mg/dL Creatinine (0.51-0.95) mg/dL Est GFR ( Amer) (>60) Est GFR (Non-Af Amer) (>60) BUN/Creatinine Ratio (8-20) Glucose (70-100) mg/dL Lactic Acid (0.5-2.0) mmol/L Calcium (8.6-10.3) mg/dL Magnesium (1.9-2.7) mg/dL Total Bilirubin (0.2-1.0) mg/dL AST (13-39) U/L ALT (7-52) U/L Alkaline Phosphatase (34-104) U/L C-Reactive Protein (<8.01) mg/L Total Protein (6.4-8.9) g/dL Albumin (3.2-5.2) g/dL Globulin (2-4) g/dL Albumin/Globulin Ratio (1-3) Lipase (11.0-82.0) U/L Urine Color Naima Urine Appearance Cloudy Urine pH 5.0 (5-9) Ur Specific [place] 1.018 (1.010-1.030) Urine Protein Negative (Negative) Urine Ketones 1+ A (Negative) Urine Blood Negative (Negative) Urine Nitrate Negative (Negative) Urine Bilirubin Negative (Negative) Urine Urobilinogen Negative (Negative) Ur Leukocyte Esterase Negative (Negative) Urine Glucose Negative (Negative) Result Diagrams: 09/20/19 13:00 09/20/19 13:00 Lab Statement: Any lab studies that have been ordered have been reviewed, and results considered in the medical decision making process. Abdominal Pain Fem Course/Dx - Course Course Of Treatment: On evaluation in to the ED, the patient has nausea, vomiting, left-sided flank pain now radiating to the left lower quadrant. On physical examination, patient appears ill, currently has emesis and is complaining of left-sided flank pain. CVA tenderness to the left side. No right-sided CVA tenderness. Afebrile and vital signs are stable. Patient was given Toradol, morphine, Zofran while in the ED. This with good effect. CT abdomen/pelvis obtained which shows a left UPJ calculus with moderate left hydronephrosis. UA negative. Discussed case with Dr. Mahan who is able to place a stent in the morning and is requesting overnight admission. Patient was given 1 L fluids while in the ED. Discussed case with hospitalist, Dr. Jackson who will admit. - Diagnoses Provider Diagnoses: Kidney stone - Provider Notifications Discussed Care Of Patient With: Roel Mahan Instructed by Provider To: Admit As Inpatient - stent placement in the AM Discharge ED - Sign-Out/Discharge Documenting (check all that apply): Patient Departure - Discharge Plan Condition: Fair Disposition: ADMITTED TO [facility] Referrals: Leti Chapman MD [Primary Care Provider] - - Billing Disposition and Condition Condition: FAIR Disposition: Admitted to [facility]
[2019-09-20] MEDS ORDERED: Magnesium Sulfate 1 GM IV* 1 GM/100 ML BAG IV ONE (15:28)
[2019-09-20] MEDS ORDERED: NS 0.9% 1000 ML** 1,000 ML IV SCH (16:45)
[2019-09-20] MEDS ORDERED: Tamsulosin CAP* 0.4 MG PO SCH (17:00)
[2019-09-20] MEDS ORDERED: Lidocaine 2% PF * 5 ML VIAL ONE (18:14)
[2019-09-20] MEDS ORDERED: Ketorolac INJ* 30 MG/ML 1 ML VIAL ONE (18:14)
[2019-09-20] MEDS ORDERED: Ondansetron INJ* 2 MG/ML VIAL ONE (18:14)
[2019-09-20] MEDS ORDERED: Midazolam* 1 MG/ML 5 ML VIAL (5 MG) ONE (18:14)
[2019-09-20] MEDS ORDERED: fentaNYL* 50 MCG/ML 2 ML VIAL (100 MCG VIAL) ONE (18:14)
[2019-09-20] MEDS ORDERED: Dexamethasone IV* 4 MG/ML 1 ML (4 MG) ONE (18:14)
[2019-09-20] MEDS ORDERED: Propofol* 10 MG/ML 20 ML BTL ONE (18:14)
--- NOTE | 2019-09-20 18:18 | HP ---
CC: Leti Chapman MD * HISTORY AND PHYSICAL: DATE OF ADMISSION: 09/20/19 PRIMARY CARE PHYSICIAN: Leti Chapman MD. HEALTHCARE PROXY: Her Sean, phone number [phone]. Of note, he is hard of hearing and hears better if you are speaking slowly. CODE STATUS: Full. CHIEF COMPLAINT: Acute onset of left-sided flank pain for a few hours. HISTORY OF PRESENT ILLNESS: Ms. Calle is a 49-year-old woman with MINNIE, on CPAP, and hypothyroidism, who is presenting with acute onset of left-sided stomach and left-sided flank pain since 9 a.m. on the day of presentation. She reports being in her usual state of health until that time when she suddenly experienced left-sided stomach and flank pain that was so severe that she felt like she could not move. The pain was also associated with one episode of vomiting when the patient was at the gas station, so she decided to present to the emergency room. She denies associated fevers, chills, dysuria, hematuria, constipation, diarrhea. She has never had symptoms like this before. A complete 10-point review of systems was performed and pertinent positives and negatives are listed in this HPI. PAST MEDICAL HISTORY: 1. Obstructive sleep apnea, on nightly CPAP. 2. Hypothyroidism. 3. Possible celiac disease. HOME MEDICATIONS: Levothyroxine 50 mcg daily. ALLERGIES: The patient reports SULFA causes rash. She also reports GLUTEN causes rash and throat closing up. FAMILY HISTORY: Her father has heart disease and has a stent. SOCIAL HISTORY: The patient lives with her Sean. They do not have children. 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 She denies a history of tobacco or other drug use, but does report social alcohol. PHYSICAL EXAMINATION GENERAL: She is a well-appearing woman in no acute distress, who is alert and interactive, answers questions appropriately. VITAL SIGNS: Afebrile, heart rate 60, blood pressure 138/65, respiratory rate 20, oxygen saturation 99% on room air. HEENT: With moist mucous membranes. OP clear. NECK: Supple. No JVD. Full range of motion intact without pain. LUNGS: Clear to auscultation bilaterally. HEART: Regular rate and rhythm. No murmurs, gallops, or rubs. ABDOMEN: Soft. Mild tenderness to palpation over left side without guarding or rebound. No organomegaly. BACK: Left-sided CVA tenderness. EXTREMITIES: Warm and well perfused without edema. NEURO: A and O x3 without focal deficits. DIAGNOSTIC STUDIES/LAB DATA: CBC notable for leukocytosis to 11.8. BMP notable for creatinine 0.99. LFTs unremarkable. CRP 1.3. UA significant only for ketones. Abdomen and pelvis CT with left UPJ calculus with moderate left hydronephrosis, normal in contour without pericolonic inflammatory change. ASSESSMENT AND PLAN: Ms. aClle is a 49-year-old woman with obstructive sleep apnea, on CPAP, and hypothyroidism, who is presenting with acute severe left flank pain associated with vomiting. She was found in the ER to have nephrolithiasis with moderate left hydronephrosis by CT scan. 1. Nephrolithiasis with hydronephrosis. While she has leukocytosis, she is without other evidence for infection such as fever, dysuria, or chills, so we will hold off on antibiotics at this time. We will continue to follow her white blood cell count and creatinine. The patient would admitted for pain control and IV fluids and will be n.p.o. at midnight for ureteral stent placement with Dr. Mahan tomorrow morning. 2. Possible celiac disease. We will order gluten-free diet. 3. Obstructive sleep apnea, on CPAP. Order nightly CPAP. 4. DVT prophylaxis: The patient is low risk and ambulatory, so we will encourage ambulation, and we will not give DVT prophylaxis medication in the setting of pending procedure. 5. Code status: Full code. TIME SPENT: Approximately 60 minutes was spent on admission of this patient, more than half of which was spent at bedside for interview and exam. [id number]/[facility] #: [id number] [facility]ENTERGall[facility]
[2019-09-20] MEDS ORDERED: cefTRIAXone(*) 1 GM ADVAN/BAG ONE (18:21)
[2019-09-20] MEDS ORDERED: Iohexol 180 (CONTRAST) 10 ML SDV IV ONE (18:41)
[2019-09-20] MEDS ORDERED: EPHEDrine (Pressors)* 50 MG/ML VIAL ONE (18:51)
[2019-09-20] MEDS ORDERED: fentaNYL* 50 MCG/ML 2 ML VIAL (100 MCG VIAL) IV PRN (19:13)
[2019-09-20] MEDS ORDERED: Naloxone* 0.4 MG/ML 1 ML VIAL IV PRN (19:13)
[2019-09-20 19:58] VITALS: BP 125/77
[2019-09-20 20:12] LABS: Activated Partial Thrombo Time 31.7 seconds (26.0-38.0)
--- NOTE | 2019-09-21 03:05 | OP ---
CC: Dr. Leti Chapman OPERATIVE REPORT: DATE OF OPERATION: 09/20/19 DATE OF : 66 SURGEON: Roel Mahan MD ANESTHESIOLOGIST: Dr. Anoop Luna ANESTHESIA: General. PRE-OP DIAGNOSES: 1. Left renal colic. 2. Left renal calculus (UPJ level, 8 mm). POST-OP DIAGNOSES: 1. Left renal colic. 2. Left renal calculus (UPJ level, 8 mm). OPERATIVE PROCEDURE: 1. Cystoscopy. 2. Left retrograde pyelography. 3. Insertion of left ureteral stent (6-Ukrainian). INDICATIONS FOR PROCEDURE: Ms. Calle is a 49-year-old white female who presented to the emergency room this afternoon with symptoms of left renal colic. She had no fever or chills. She denies any past history of renal diseases or calculi. Noncontrast CT of the abdomen and pelvis showed an 8 mm calculus at the left ureteropelvic junction associated with moderate left hydronephrosis. Her urinalysis was negative for infection, and her lab work was normal. Because of the size of the stone and its location and recurrent episodes of left renal colic, the patient is taken to the operating room on an urgent basis for insertion of left ureteral stent in preparation for definitive treatment of the stone. PATHOLOGY: At cystoscopy, the bladder mucosa looked normal. There were no suspicious bladder lesions seen. No calculi or diverticula were noted. At the fluoroscopy, a triangular shaped radiopaque calculus measuring about 8 mm in size was noted in the area of the proximal left ureter, consistent with the stone seen on the CT. Left retrograde pyelography showed moderate left hydronephrosis. There was brisk efflux of concentrated looking urine from the left ureteral orifice after the placement of the stent. DESCRIPTION OF PROCEDURE: After successful general anesthesia, the patient was placed in the lithotomy position and was prepped and draped for a cystoscopy. Cystoscopy was performed. The bladder was inspected and the above findings were noted. A flexible-tip guidewire was then introduced into the left orifice and positioned in the area of the renal pelvis under fluoroscopy guidance. An open ended catheter was fed on top of the guidewire. Retrograde pyelography was performed. The guide wire was replaced and a size 6- Ukrainian stent was then placed with the proximal end coiling in the renal pelvis and the distal end coiling inside the bladder. There was good drainage of contrast from the kidney and no extravasation. The patient tolerated the procedure well and left the operating room in good condition. The plan is to obtain a KUB before the patient's discharge. With the stone being radiopaque, she is a candidate for shock wave lithotripsy at a later date. [id number]/[facility] #: [id number] CHON
[2019-09-21] MEDS ORDERED: Levothyroxine TAB* 50 MCG TAB PO SCH (06:00)
== END 2019-09-20 20:36 | disposition home or self-care (01) ==
LOC: ED 12:01 → MED 15:23
PROVIDERS: ADMIT Internal Medicine; ATTEND Urology
DX: N20.0 Calculus of kidney (principal); Z87.442 Personal history of urinary calculi; G47.33 Obstructive sleep apnea (adult) (pediatric); E03.9 Hypothyroidism, unspecified; R10.84 Generalized abdominal pain; Z88.2 Allergy status to sulfonamides; F31.9 Bipolar disorder, unspecified
CPT/HCPCS: 36415; 74018; 74176; 74420; 80053; 81003; 83605; 83690; 83735; 85025; 85610; 85730; 86140; 96374; 96375; 96376; 99283; G0378; J0696; J1100; J1885; J2250; J2270; J2405; J2704; J2765; J3010; J3475

== ENCOUNTER 2019-09-30 06:42 | Day surgery (SDC) | payer OTHER ==
--- NOTE | 2019-09-26 13:57 | HP ---
CC: Dr. Chapman INTERVAL HISTORY NOTE: DATE OF PLANNED ADMISSION AND SURGERY: 09/30/19 HISTORY OF PRESENT ILLNESS: Ms. Calle is a 49-year-old white female, who is admitted with left renal calculus, status post placement of left ureteral stent , for shockwave lithotripsy of the left renal calculus and possible cystoscopy and removal of the left ureteral stent. Please refer to the detailed history and physical on this patient's admission dated 09/20/19. Ms. Calle presented to the emergency room on 09/20/19 with symptoms of left renal colic. She did not have any fever or chills. Her urine analysis was positive for blood, negative for infection. Her vital signs were normal and she was not febrile. A noncontrast CT of the abdomen and pelvis showed an 8-mm calculus at the left ureteropelvic junction associated with moderate left hydronephrosis. No other abnormalities were noted. Her lab work on admission was within normal except the microscopic hematuria. The patient was admitted for IV fluid and pain control. She was then taken to the operating room where she had insertion of a left ureteral stent. Postoperative KUB showed the stent in good position and the stone to have migrated into the renal pelvis. The patient was discharged home on pain medication. I saw her in my office for follow-up. She has been doing well except for left stent pain. The patient is now admitted for shockwave lithotripsy of the left renal calculus and if there is good fragmentation of the stone, for cystoscopy and left stent removal. There have not been any changes in her medical condition or in her medications. Her physical examination continued to be normal with normal vital signs. I discussed the above plans in detail with the patient. She understands that the procedure might be associated with flank pain, hematuria and that there is need to be a confirmation of the stone fragmentation before the stent is removed. All her questions were answered. [id number]/[facility] #: [id number] [facility]ITALGall[facility]
[~2019-09-30 06:42] MED LIST: Acetaminophen TAB* 325 MG PO ONE; Buffered Lidocaine 1% SYRIN* 1 ML/SYRINGE INTRADERM ONE; Famotidine IV* 10 MG/ML 2 ML (20 mg) IV ONE; Gabapentin CAP(*) 300 MG PO ONE; Lactated Ringers 1000 ML Bag* 1,000 ML IV SCH
[2019-09-30] MEDS ORDERED: NS 0.9% 1000 ML** 1,000 ML IV SCH (07:30)
[2019-09-30] MEDS ORDERED: Acetaminophen TAB* 325 MG ONE (08:01)
[2019-09-30] MEDS ORDERED: Gabapentin CAP(*) 300 MG ONE (08:02)
[2019-09-30] MEDS ORDERED: Famotidine IV* 10 MG/ML 2 ML (20 mg) ONE (08:02)
[2019-09-30] MEDS ORDERED: cefTRIAXone(*) 2 GM ADDV.VIAL IVPB ONE (08:02)
[2019-09-30] MEDS ORDERED: fentaNYL* 50 MCG/ML 2 ML VIAL (100 MCG VIAL) ONE (08:27)
[2019-09-30] MEDS ORDERED: Midazolam* 1 MG/ML 2 ML VIAL (2 MG) ONE (08:27)
[2019-09-30] MEDS ORDERED: Dexamethasone IV* 4 MG/ML 1 ML (4 MG) ONE (09:08)
[2019-09-30] MEDS ORDERED: Sugammadex * 500 MG/5 ML VIAL IV PUSH ONE (09:08)
[2019-09-30] MEDS ORDERED: Ondansetron INJ* 2 MG/ML VIAL ONE (09:08)
[2019-09-30] MEDS ORDERED: Propofol* 10 MG/ML 20 ML BTL ONE (09:08)
[2019-09-30] MEDS ORDERED: Naloxone* 0.4 MG/ML 1 ML VIAL IV PRN (09:18)
[2019-09-30] MEDS ORDERED: fentaNYL* 50 MCG/ML 2 ML VIAL (100 MCG VIAL) IV PRN (09:18)
[2019-09-30] MEDS ORDERED: Ondansetron INJ* 2 MG/ML VIAL IV PRN (09:18)
[2019-09-30] MEDS ORDERED: DiMENhydriNATE IV* 50 MG/ML VIAL IV PUSH PRN (09:18)
[2019-09-30] MEDS ORDERED: HYDROcodone/ACETAMIN 5-325 MG* 1 TAB PO PRN (09:18)
[2019-09-30 11:12] VITALS: BP 134/72
--- NOTE | 2019-09-30 14:49 | OP ---
CC: Dr. Chapman * DATE OF OPERATION: 09/30/19 - [facility] DATE OF : 66 SURGEON: Dr. Mahan. ANESTHESIOLOGIST: Dr. Eduardo Mascorro. ANESTHESIA: General. PRE-OP DIAGNOSES: 1. Left renal calculus. 2. Status post placement left ureteral sent. POST-OP DIAGNOSES: 1. Left renal calculus. 2. Status post placement left ureteral sent. OPERATIVE PROCEDURE: Shockwave lithotripsy of left renal calculus (8 mm). INDICATION FOR PROCEDURE: Ms. Calle is a 49-year-old white female who presented to the emergency room on 09/20/19 with symptoms of left renal colic and was noted on CT to have an 8 mm calculus at the left ureteropelvic junction. She had urgent placement of left ureteral stent. Postoperative KUB showed the stone to have migrated into the renal pelvis. The patient is now admitted for shockwave lithotripsy of the left renal calculus. PATHOLOGY: Preoperative KUB showed the stone to have dropped back at the ureteropelvic junction. At fluoroscopy, however, the stone seemed to have migrated back into the renal pelvis adjacent to the stent. This stent was in good position by fluoroscopy. DESCRIPTION OF PROCEDURE: After successful general anesthesia, the patient was placed in the supine position on the shockwave lithotripsy table. The left kidney was visualized by fluoroscopy and the above findings were noted. The left renal calculus was then visualized in both the PA and the oblique x- ray views and the position of the patient and the generator were adjusted to have the stone in the focus of the shock waves. A total of 2000 shocks were then delivered at a rate of 60 shocks per minute. The proper positioning and fragmentation of the stone were monitored periodically. At the completion of the treatment, there seemed to be good fragmentation of the stone. The patient tolerated the procedure well and left the operating room in good condition. The plan is to obtain KUB at the patient's discharge. If there is in fact confirmation that the stone broke adequately, the plan is to remove the stent in the office later on this week. [id number]/[facility] #: [id number] MTDD
== END 2019-09-30 11:14 | disposition home or self-care (01) ==
LOC: OR 06:42
PROVIDERS: ATTEND Urology
DX: N20.0 Calculus of kidney (principal); G47.33 Obstructive sleep apnea (adult) (pediatric); E03.9 Hypothyroidism, unspecified; F31.9 Bipolar disorder, unspecified
CPT/HCPCS: 74018; A9270-GY; J0696; J1100; J2250; J2405; J2704; J3010